=== PATIENT | male | born 1940 | race African-American/Black ===

== ENCOUNTER 2019-09-27 23:41 | Inpatient (IN) | payer OTHER ==
[~2019-09-27] VITALS: Ht 188 cm; Wt 141.6 kg
[2019-09-27 23:43] VITALS: BP 128/50
[2019-09-28] VITALS (52 sets, daily range): BP systolic 58–178; BP diastolic 19–78
[2019-09-28 00:13] LABS: ABSOLUTE NEUTROPHILS 6.7 thou/uL (1.4-8.2); BASOPHILS 0.4 % (0.0-2.0); EOSINOPHILS 0.9 % (0.0-3.0); HEMATOCRIT 38.3 % (42.0-52.0); HEMOGLOBIN 12.3 gm/dL (14.0-18.0); LYMPHOCYTES 16.4 % (24.0-44.0); MCH 28.9 pg (26.0-34.0); MCHC 32.1 g/dL (28.0-37.0); MCV 90.1 fL (80.0-100.0); MONOCYTES 5.2 % (1.0-8.0); PLATELET COUNT 184 thou/uL (150-400); POLYS 77.1 % (36.0-66.0); RBC 4.25 mil/uL (4.50-6.00); RDW 17.3 % (10.5-14.5); WBC 8.7 thou/uL (4.0-11.0)
[2019-09-28 00:17] LABS: ANION GAP 1 mmol/L (7-16); BUN 24 mg/dL (7-18); CHLORIDE 96 mmol/L (98-107); CO2 39 mmol/L (21-32); CREATININE 1.2 mg/dL (0.7-1.3); GLUCOSE 198 mg/dL (74-106); POTASSIUM 4.4 mmol/L (3.5-5.1); SODIUM 136 mmol/L (136-145)
[2019-09-28] MEDS ORDERED: ALLOPURINOL 10100 M1 PO (00:24)
[2019-09-28] MEDS ORDERED: LIPITOR 10 MG10 M1 PO (00:25)
[2019-09-28] MEDS ORDERED: CARVEDILOL12.5 MG PO (00:26)
[2019-09-28 00:27] LABS: DIRECT BILIRUBIN 0.1 mg/dL (<0.1-0.2); SGOT 16 U/L (15-37); SGPT 18 U/L (30-65); TOTAL BILIRUBIN 0.3 mg/dL (0.2-1.0); TROPONIN-I <0.06 ng/mL (<0.06)
[2019-09-28] MEDS ORDERED: CHILDREN'S ZYRT10 M1 PO (00:27)
[2019-09-28] MEDS ORDERED: ELIQUIS5 MG PO (00:33)
[2019-09-28] MEDS ORDERED: CODEINE-GUAIFE120 ML PO (00:33)
[2019-09-28] MEDS ORDERED: DULCOLAX STOOL100 M1 PO (00:33)
[2019-09-28] MEDS ORDERED: EUCERIN CREME57 GM TOP (00:34)
[2019-09-28] MEDS ORDERED: FLOMAX0.4 MG PO (00:35)
[2019-09-28] MEDS ORDERED: GLIMEPIRIDE1 MG PO (00:36)
[2019-09-28] MEDS ORDERED: FUROSEMIDE 40 M40 MG PO (00:36)
[2019-09-28] MEDS ORDERED: JANUVIA100 MG PO (00:36)
[2019-09-28] MEDS ORDERED: LEVO-T75 MCG PO (00:37)
[2019-09-28] MEDS ORDERED: MIDODRINE HCL10 MG PO (00:38)
[2019-09-28] MEDS ORDERED: LOPERAMIDE 2 MG2 MG PO (00:38)
[2019-09-28] MEDS ORDERED: SUPER THERAVIT1 EACH PO (00:39)
[2019-09-28] MEDS ORDERED: ENDOCET 5-3251 EACH PO (00:41)
[2019-09-28 00:42] LABS: APTT 31.5 Seconds (24.5-32.8); INR 1.1; PROTIME 10.9 Seconds (9.3-11.4)
[2019-09-28] MEDS ORDERED: CLEAR EYES NATU15 ML EA. EYE (00:43)
[2019-09-28] MEDS ORDERED: LYRICA150 MG PO (00:46)
[2019-09-28 01:18] LABS: URINE BILIRUBIN 1+ (Negative); URINE BLOOD 3+ (Negative); URINE CLARITY CLOUDY; URINE COLOR YELLOW; URINE GLUCOSE-RANDOM* NEGATIVE (Negative); URINE KETONES NEGATIVE (Negative); URINE PROTEIN (DIPSTICK) 2+ (Negative); URINE SPECIFIC GRAVITY >= 1.030 (1.005-1.035)
[2019-09-28 01:32] LABS: ICTOTEST (BILI CONFIRMATORY) Positive (Negative); URINE LEUKOCYTES-REFLEX 2+ (Negative); URINE NITRITE-REFLEX POSITIVE (Negative)
[2019-09-28 01:37] LABS: CRYSTALS None Seen /LPF (None Seen); HYALINE CASTS 4-10 Moderate /LPF (None Seen); MUCUS 0-3 Light strn/LPF (None Seen); SQUAMOUS None Seen /LPF (0-3); URINE RBC >20 Many /HPF (0-2); URINE WBC-REFLEX >25 Many /HPF (0-5)
[2019-09-28 01:38] LABS: BACTERIA-REFLEX >30 Many /HPF (None Seen)
[2019-09-28 01:42] LABS: AMP/METHAMP Negative (Negative); BARBITURATES Negative (Negative); BENZODIAZEPINES Negative (Negative); COCAINE Negative (Negative); METHADONE Negative (Negative); OPIATES Negative (Negative); PCP Negative (Negative)
[2019-09-28 05:37] LABS: BE(vivo) 4.2 mmol/L (-2 to +3); pH 7.361 (7.360-7.450); sO2 87.2 % (92.0-98.0)
[2019-09-28 05:41] LABS: PO2 55.6 mmHg (80.0-100.0)
[2019-09-28 09:13] LABS: BE(vivo) 3.4 mmol/L (-2 to +3); HCO3 29.1 mmol/L (22.0-26.0); PCO2 49.1 mmHg (35.0-45.0); PO2 77.6 mmHg (80.0-100.0); pH 7.391 (7.360-7.450); sO2 95.3 % (92.0-98.0)
[2019-09-28 13:25] LABS: HEMATOCRIT 38.1 % (42.0-52.0); HEMOGLOBIN 12.2 gm/dL (14.0-18.0); MCH 28.3 pg (26.0-34.0); MCV 88.7 fL (80.0-100.0); RBC 4.29 mil/uL (4.50-6.00); RDW 17.2 % (10.5-14.5); WBC 13.4 thou/uL (4.0-11.0)
[2019-09-28 13:56] LABS: ALBUMIN 2.6 g/dL (3.4-5.0); CALCIUM 8.6 mg/dL (8.5-10.1); MAGNESIUM 1.8 mg/dL (1.8-2.4); POTASSIUM 3.7 mmol/L (3.5-5.1); TOTAL BILIRUBIN 0.5 mg/dL (0.2-1.0); TOTAL PROTEIN 7.4 g/dL (6.4-8.2)
[2019-09-29] VITALS (51 sets, daily range): BP systolic 63–149; BP diastolic 35–99
[2019-09-29 05:27] LABS: BE(vivo) 3.1 mmol/L (-2 to +3); HCO3 25.8 mmol/L (22.0-26.0); PO2 103.2 mmHg (80.0-100.0); pH 7.511 (7.360-7.450); sO2 98.2 % (92.0-98.0)
[2019-09-29 05:34] LABS: HEMATOCRIT 34.6 % (42.0-52.0); HEMOGLOBIN 11.2 gm/dL (14.0-18.0); MCH 28.8 pg (26.0-34.0); MCHC 32.4 g/dL (28.0-37.0); MCV 88.8 fL (80.0-100.0); RBC 3.9 mil/uL (4.50-6.00); RDW 17.4 % (10.5-14.5); WBC 9.7 thou/uL (4.0-11.0)
[2019-09-29 05:42] LABS: CALCIUM 8.6 mg/dL (8.5-10.1); MAGNESIUM 1.7 mg/dL (1.8-2.4); POTASSIUM 3.3 mmol/L (3.5-5.1)
--- NOTE | 2019-09-29 07:54 | EKG ---
[facility] [place] [address] ELECTROCARDIOGRAM REPORT Name: HOLDEN DE LA PAZ Room #: 240-P ADM IN M.R.#: [id number] Admission: 09/28/19 Attend Phys: Neo Del Valle MD Discharge: Date of : 44 Report #: [id number] THIS REPORT FOR: cc: Bill Platt MD, Shyam MD Lundgren,Julián Sullivan MD [facility] ~ THIS REPORT FOR: //name// [facility] ED Test Date: 2019-09-27 Test Time: 23:58:56 Pat Name: HOLDEN DE LA PAZ Department: Room: 240 Gender: M Transmitter Supervisor: ofelia : 1940 Requested By: Evelin Vogel Order Number: [id number] MD: Julián Mike Measurements Intervals [place] Rate: 81 P: 0 OH: 220 QRS: -74 QRSD: 161 T: 37 QT: 451 QTc: 524 Interpretive Statements Sinus rhythm Ventricular premature complex Prolonged OH interval Left atrial enlargement RBBB and LAFB No previous ECG available for comparison Electronically Signed On 09-29-2019 7:54:05 CDT by Julián Mike [email or web address] <ELECTRONICALLY SIGNED> By: Julián Mike MD, [facility] 09/29/19 0754 [id number] Julián Mike MD, [facility] /EPI
[2019-09-30] VITALS (14 sets, daily range): BP systolic 75–163; BP diastolic 40–124
[2019-09-30 05:13] LABS: HEMATOCRIT 35.5 % (42.0-52.0); HEMOGLOBIN 11.4 gm/dL (14.0-18.0); MCH 28.4 pg (26.0-34.0); MCHC 32.1 g/dL (28.0-37.0); MCV 88.5 fL (80.0-100.0); RBC 4.01 mil/uL (4.50-6.00); RDW 17.6 % (10.5-14.5); WBC 6.9 thou/uL (4.0-11.0)
[2019-09-30 06:34] LABS: CALCIUM 8.5 mg/dL (8.5-10.1); CREATININE 0.8 mg/dL (0.7-1.3); MAGNESIUM 2.1 mg/dL (1.8-2.4); POTASSIUM 3.7 mmol/L (3.5-5.1)
--- NOTE | 2019-09-30 08:50 | 2DMMODE ---
[facility] [address] [place] [address] 2 D/M-MODE ECHOCARDIOGRAM Name: HOLDEN DE LA PAZ Room #: 246-P ADM IN M.R.#: [id number] Admission: 09/28/19 Attend Phys: Neo Del Valle MD Discharge: Date of : 42 Report #: [id number] THIS REPORT FOR: cc: Bill Platt MD, Shyam MD Lundgren,Julián Sullivan MD [facility] ~ APPROVED REPORT Study performed: 09/30/2019 07:52:09 EXAM: Comprehensive 2D, Doppler, and color-flow Echocardiogram Patient Location: ICU Room #: 246 Status: routine BSA: 2.62 HR: 60 bpm BP: 163/124 mmHg Rhythm: Pacemaker Other Information Study Quality: Fair/not all measurements obtainable Technically limited study due to morbid obesity, on vent. Indications Rule out vegetations. Sepsis. Mental status changes. Hx: Pacemaker, heart failure, PVD, HTN, DM. 2D Dimensions IVSd: 15.05 (7-11mm) LVOT Diam: 22.79 (18-24mm) LVDd: 58.13 mm PWd: 15.00 (7-11mm) LVDs: 45.22 (25-40mm) Aortic Root: 39.13 mm Aortic Valve AoV Peak Saud.: 1.41 m/s AO Peak Gr.: 7.95 mmHg LVOT Max P.34 mmHg LVOT Max V: 0.77 m/s APARNA Vmax: 2.21 cm2 Mitral Valve E/A Ratio: 1.1 MV Decel. Time: 165.52 ms [facility] [address] [place] [address] 2 D/M-MODE ECHOCARDIOGRAM Name: HOLDEN DE LA PAZ Room #: 246-P [facility].#: [id number] Admission: 09/28/19 Attend Phys: Neo Del Valle, Discharge: Date of : 42 Report #: [id number] MV E Max Saud.: 0.93 m/s MV A Saud.: 0.81 m/s MV PHT: 48.00 ms IVRT: 69.20 ms Pulmonary Valve PV Peak Saud.: 0.71 m/s PV Peak Gr.: 2.04 mmHg Tricuspid Valve TR Peak Saud.: 3.95 m/s RAP Estimate: 15.00 mmHg TR Peak Gr.: 62.35 mmHg PA Pressure: 77.00 mmHg Left Ventricle Left ventricle is at the upper limits of normal. Moderate concentric left ventricular hypertrophy. Left ventricular systolic function is at the lower limits of normal. LVEF is 45-50%. Discordant distal septal motion probably from right ventricular pacing Moderate diastolic dysfunction Right Ventricle Right ventricle is not well visualized but appears grossly normal in function. Pacemaker lead is present in the right ventricle. Atria Left atrium is dilated. Right atrium size is not well visualized. Aortic Valve The aortic valve is moderately calcified. No aortic regurgitation is present. There is no aortic valvular stenosis. Mitral Valve Mild mitral annular calcification. Moderate mitral regurgitation; difficult to characterize Tricuspid Valve Tricuspid valve is not well visualized. Moderate tricuspid regurgitation. Estimated PAP is 70mmHg. Pulmonic Valve Pulmonic valve is not well visualized. Great Vessels Aortic root is mildly dilated (3.9cm). Ascending aorta is not well visualized. IVC is dilated and collapses <50% with [facility] [address] [place] [address] 2 D/M-MODE ECHOCARDIOGRAM Name: HOLDEN DE LA PAZ Room #: 246-P [facility].#: [id number] Admission: 09/28/19 Attend Phys: Neo Del Valle, Discharge: Date of : 44 Report #: [id number] inspiration. Pericardium Small posteriorly located pericardial effusion. <Conclusion> Technically difficult and limited study Left ventricular systolic function is at the lower limits of normal. LVEF is 45-50%. Discordant distal septal motion probably from right ventricular pacing Moderate diastolic dysfunction Left atrium is dilated. The aortic valve is moderately calcified. No aortic regurgitation or stenosis. Mild mitral annular calcification. Moderate mitral regurgitation; difficult to characterize Moderate tricuspid regurgitation. Estimated pulmonary artery pressure of 70mmHg. Small posteriorly located pericardial effusion. <ELECTRONICALLY SIGNED> By: Julián Mike MD, [facility] 09/30/1948 0850 Julián Mike MD, [facility] /INF
[2019-09-30 14:33] LABS: BE(vivo) 0 mmol/L (-2 to +3); HCO3 25.1 mmol/L (22.0-26.0); PCO2 42.5 mmHg (35.0-45.0); PO2 159.8 mmHg (80.0-100.0); pH 7.389 (7.360-7.450)
[2019-10-01] VITALS (24 sets, daily range): BP systolic 120–162; BP diastolic 22–63
[2019-10-01 05:45] LABS: HEMATOCRIT 33.8 % (42.0-52.0); HEMOGLOBIN 10.8 gm/dL (14.0-18.0); MCH 28.5 pg (26.0-34.0); MCHC 31.8 g/dL (28.0-37.0); MCV 89.6 fL (80.0-100.0); RBC 3.77 mil/uL (4.50-6.00); RDW 17.8 % (10.5-14.5); WBC 5.6 thou/uL (4.0-11.0)
[2019-10-01 06:05] LABS: CALCIUM 8.5 mg/dL (8.5-10.1); CREATININE 0.8 mg/dL (0.7-1.3); MAGNESIUM 2.1 mg/dL (1.8-2.4); POTASSIUM 3.6 mmol/L (3.5-5.1)
[2019-10-02] VITALS (26 sets, daily range): BP systolic 138–181; BP diastolic 43–121
[2019-10-02 04:52] LABS: HEMATOCRIT 34.1 % (42.0-52.0); HEMOGLOBIN 10.8 gm/dL (14.0-18.0); MCH 28.5 pg (26.0-34.0); MCHC 31.7 g/dL (28.0-37.0); MCV 89.8 fL (80.0-100.0); RBC 3.79 mil/uL (4.50-6.00); RDW 17.3 % (10.5-14.5); WBC 5.1 thou/uL (4.0-11.0)
[2019-10-02 05:00] LABS: CALCIUM 8.7 mg/dL (8.5-10.1); CREATININE 0.9 mg/dL (0.7-1.3); POTASSIUM 3.3 mmol/L (3.5-5.1)
[2019-10-03] VITALS (9 sets, daily range): BP systolic 144–192; BP diastolic 31–74
[2019-10-03 05:16] LABS: CALCIUM 8.8 mg/dL (8.5-10.1); CREATININE 0.9 mg/dL (0.7-1.3); POTASSIUM 3.4 mmol/L (3.5-5.1)
[2019-10-03 05:17] LABS: HEMATOCRIT 35.7 % (42.0-52.0); HEMOGLOBIN 11.3 gm/dL (14.0-18.0); MCH 28.2 pg (26.0-34.0); MCHC 31.7 g/dL (28.0-37.0); MCV 88.8 fL (80.0-100.0); RBC 4.02 mil/uL (4.50-6.00); RDW 17.1 % (10.5-14.5); WBC 7.1 thou/uL (4.0-11.0)
[2019-10-04 06:47] LABS: HEMATOCRIT 34.3 % (42.0-52.0); MCH 28.4 pg (26.0-34.0); MCHC 32.1 g/dL (28.0-37.0); MCV 88.5 fL (80.0-100.0); RBC 3.87 mil/uL (4.50-6.00); RDW 17.4 % (10.5-14.5); WBC 9.3 thou/uL (4.0-11.0)
[2019-10-04 07:09] LABS: CALCIUM 8.8 mg/dL (8.5-10.1); CREATININE 0.9 mg/dL (0.7-1.3); POTASSIUM 3.1 mmol/L (3.5-5.1)
[2019-10-04 07:22] VITALS: BP 158/68
[2019-10-04 10:24] LABS: URINE BILIRUBIN NEGATIVE (Negative); URINE BLOOD 1+ (Negative); URINE CLARITY CLEAR; URINE COLOR YELLOW; URINE GLUCOSE-RANDOM* NEGATIVE (Negative); URINE KETONES NEGATIVE (Negative); URINE LEUKOCYTES-REFLEX NEGATIVE (Negative); URINE NITRITE-REFLEX NEGATIVE (Negative); URINE PROTEIN (DIPSTICK) NEGATIVE (Negative); URINE SPECIFIC GRAVITY 1.015 (1.005-1.035); URINE UROBILINOGEN 0.2 E.U./dl (0.2-1.0)
[2019-10-04 10:38] LABS: CASTS None Seen /LPF (None Seen); MUCUS 0-3 Light strn/LPF (None Seen); SQUAMOUS 0-3 Few /LPF (0-3)
[2019-10-04 10:39] LABS: BACTERIA-REFLEX None Seen /HPF (None Seen); CRYSTALS None Seen /LPF (None Seen); URINE RBC 0-2 Rare /HPF (0-2); URINE WBC-REFLEX 0-5 Rare /HPF (0-5)
[2019-10-04] MEDS ORDERED: CEFDINIR300 MG PO (14:06)
[2019-10-04] MEDS ORDERED: IPRAT-ALBUT 0.5-3 ML INH (14:06)
[2019-10-04] MEDS ORDERED: PREDNISONE 10 M10 M1 PO (14:08)
[2019-10-04 15:35] VITALS: BP 152/52
[2019-10-05 01:00] VITALS: BP 187/92
[2019-10-05 04:00] VITALS: BP 167/79
[2019-10-05 08:19] VITALS: BP 174/82
== END 2019-10-05 15:13 | DRG 871 ==
LOC: ER 23:41 → EROBS 09-28 03:17 → ICU 09-28 03:17 → 4W 10-03 06:18
PROVIDERS: Emergency Medicine; Hospitalist; Internal Medicine Pulmonary Disease; Nurse Practitioner Family; Pediatrics; ADMIT Internal Medicine; ATTEND Internal Medicine
PROC: 5A1945Z Respiratory Ventilation, 24-96 Consecutive Hours (ICD-10-PCS; principal; 2019-09-28)
PROC: 02HV33Z Insertion of Infusion Device into Superior Vena Cava, Percutaneous Approach (ICD-10-PCS; principal; 2019-09-28)
PROC: 0BH18EZ Insertion of Endotracheal Airway into Trachea, Via Natural or Artificial Opening Endoscopic (ICD-10-PCS; principal; 2019-09-28)
PROC: 4B02XSZ Measurement of Cardiac Pacemaker, External Approach (ICD-10-PCS; 2019-10-02)
DX: A41.59 Other Gram-negative sepsis (principal); R65.21 Severe sepsis with septic shock; J96.02 Acute respiratory failure with hypercapnia; J96.01 Acute respiratory failure with hypoxia; J18.9 Pneumonia, unspecified organism; I50.33 Acute on chronic diastolic (congestive) heart failure; N39.0 Urinary tract infection, site not specified; E87.2 Acidosis; Z68.41 Body mass index [BMI] 40.0-44.9, adult; J98.11 Atelectasis; I42.9 Cardiomyopathy, unspecified; M10.9 Gout, unspecified; E78.5 Hyperlipidemia, unspecified; E03.9 Hypothyroidism, unspecified; E66.01 Morbid (severe) obesity due to excess calories; E11.51 Type 2 diabetes mellitus with diabetic peripheral angiopathy without gangrene; K21.9 Gastro-esophageal reflux disease without esophagitis; F03.90 Unspecified dementia, unspecified severity, without behavioral disturbance, psychotic disturbance, mood disturbance, and anxiety; Y95 Nosocomial condition; I11.0 Hypertensive heart disease with heart failure; N40.1 Benign prostatic hyperplasia with lower urinary tract symptoms; R33.8 Other retention of urine; E87.6 Hypokalemia; E83.42 Hypomagnesemia; B96.89 Other specified bacterial agents as the cause of diseases classified elsewhere; I48.91 Unspecified atrial fibrillation; Z20.828 Contact with and (suspected) exposure to other viral communicable diseases; I08.1 Rheumatic disorders of both mitral and tricuspid valves; E11.40 Type 2 diabetes mellitus with diabetic neuropathy, unspecified; B96.1 Klebsiella pneumoniae [K. pneumoniae] as the cause of diseases classified elsewhere; Z95.0 Presence of cardiac pacemaker; Z79.01 Long term (current) use of anticoagulants; Z79.899 Other long term (current) drug therapy; Z79.84 Long term (current) use of oral hypoglycemic drugs; Z74.01 Bed confinement status
CPT/HCPCS: 10047; 10078

== ENCOUNTER 2019-10-15 11:42 | Inpatient (IN) | payer OTHER ==
[~2019-10-15] VITALS: Ht 182.9 cm; Wt 147.9 kg
--- NOTE | ~2019-10-15 | EMS ---
[address] [address] EMS Patient Care Report Name: HOLDEN DE LA PAZ Room #: REG [facility] Valdez#: [id number] Admission: 10/15/19 Attend Phys: Discharge: Date of : 42 Report #: [id number] THIS REPORT FOR: //name// Report Transmitted: 10/15/2019 13:37 EMS Care Summary [place], [place]/[facility] Incident [id number] @ 10/15/2019 11:00 Incident Location [address] [place] [address] Patient HOLDEN DE LA PAZ JR Male, 79 Years 1940 Patient Address [address] [place], [place] [id number] Patient History Dementia,Hypertension (HTN),Hyperlipidemia,Gastro-Esophageal Reflux Disease (GERD),Morbid Obesity,Cardiac Condition - Other,Pneumonia,Hypothyroidism,Type 2 Diabetes,None Reported, Patient Allergies No known allergies, Patient Medications Furosemide, Atorvastatin, Other, Allopurinol, Docusate Sodium, Carvedilol, Levothyroxine, Tamsulosin, Loperamide, Glimepiride, Albuterol, Prednisone, Januvia, Percocet, Chief Complaint AMS Disposition Transported No Lights/[place] Reason Unconscious/Fainting Transported To [address] [address] EMS Patient Care Report Name: HOLDEN DE LA PAZ Room #: REG [facility] Valdez#: [id number] Admission: 10/15/19 Attend Phys: Discharge: Date of : 42 Report #: [id number] Narrative PT FOUND LYING IN BED. [facility] T15 ALSO RESPONDED. STAFF STATES THAT PT IS UNRESPONSIVE TO THEM. STAFF IS DIFFICULT GETTING INFORMATION OUT OF. ISOLATION PRECAUTIONS NOTICES WERE POSTED ON PT ROOM DOOR. WHEN STAFF ASKED ABOUT THIS, THEY SAID THAT THERE WEREN'T ANY. STAFF DID NOT GIVE PT VITALS AND SAID THAT THEY WERE OK. PT NOTED TO BE DIABETIC WHILE READING CHART. STAFF SPECIFICALLY ASKED IF THEY TOOK HIS BOOD SUGAR. THEY REPLIED THAT IT WAS 128. STAFF DID NOT GIVE ANY FURTHER INFORMATION BESIDES SAYING THAT THIS DEMENTIA PATIENT WAS NORMALLY ALERT AND ORIENTED. [facility] APPLIED TO PT FOR TRANSPORT. TRANSPORTED WITHOUT INCIDENT. NO IV SITE NOTED ON EXAM. Initial Vitals @11:19P: 72,R: 18,BP: 151/76,Pain: 0/10,GCS: 12,Glucose: 107,SpO2: 89,Revised Trauma: 11,WA Suspected: false Assessments @11:15MENTAL:Unresponsive,SKIN:No Abnormalities,HEENT:Head/Face: No Abnormalities,Eyes: No Abnormalities,Neck/Airway: No Abnormalities,LUNG SOUNDS:ABDOMEN:PELVIS//GI:EXTREMITIES:PULSE:NEURO:No Abnormalities, Impression Altered Mental Status Procedures @11:15ALS AssessmentResponse: UnchangedSucceeded@11:203-Lead ECGResponse: UnchangedSucceeded Timeline 10:58,Call Received 10:58,Dispatch Notified 11:00,Dispatched 11:00,En Route 11:08,On Scene 11:15,At Patient 11:15,ALS Assessment,Response: UnchangedSucceeded, 11:19,BP: 151/76 M,PULSE: 72,RR: 18 R,SPO2: 89 Ox,ETCO2: ,B,PAIN: 0,GCS: 12, 11:20,3-Lead ECG,Response: UnchangedSucceeded, 11:22,Depart Scene 11:32,At Destination 11:52,Call Closed Disclaimer v1.1 Copyright 2020 [employer] This EMS Care Summary contains data elements from the applicable legal record (which may be displayed differently). It is designed to provide pertinent [address] [address] EMS Patient Care Report Name: ANA CRISTINAHOLDEN Jaime Room #: REG Courtney#: [id number] Admission: 10/15/19 Attend Phys: Discharge: Date of : 42 Report #: [id number] information for the following purposes: continuity of care, clinical quality, and state data reporting. The complete legal record is available to ED staff and administrators of the receiving hospital in [employer] Patient Tracker. All data is provided "as is."
[~2019-10-15 11:42] MED LIST: ALLOPURINOL 10100 M1 PO; CARVEDILOL12.5 MG PO; CEFDINIR300 MG PO; CHILDREN'S ZYRT10 M1 PO; CLEAR EYES NATU15 ML EA. EYE; CODEINE-GUAIFE120 ML PO; DULCOLAX STOOL100 M1 PO; ELIQUIS5 MG PO; ENDOCET 5-3251 EACH PO; EUCERIN CREME57 GM TOP; FLOMAX0.4 MG PO; FUROSEMIDE 40 M40 MG PO; GLIMEPIRIDE1 MG PO; IPRAT-ALBUT 0.5-3 ML INH; JANUVIA100 MG PO; LEVO-T75 MCG PO; LIPITOR 10 MG10 M1 PO; LOPERAMIDE 2 MG2 MG PO; LYRICA150 MG PO; MIDODRINE HCL10 MG PO; PREDNISONE 10 M10 M1 PO; SUPER THERAVIT1 EACH PO
[2019-10-15 11:45] VITALS: BP 132/58
[2019-10-15 13:12] LABS: ABSOLUTE NEUTROPHILS 5.4 thou/uL (1.4-8.2); BASOPHILS 0.8 % (0.0-2.0); EOSINOPHILS 1.1 % (0.0-3.0); HEMATOCRIT 37.4 % (42.0-52.0); LYMPHOCYTES 17.5 % (24.0-44.0); MCH 28.6 pg (26.0-34.0); MCV 89.3 fL (80.0-100.0); MONOCYTES 7.9 % (1.0-8.0); PLATELET COUNT 284 thou/uL (150-400); POLYS 72.7 % (36.0-66.0); RBC 4.18 mil/uL (4.50-6.00); RDW 16.7 % (10.5-14.5); WBC 7.4 thou/uL (4.0-11.0)
[2019-10-15 13:44] LABS: BE(vivo) 7.2 mmol/L (-2 to +3); HCO3 39.8 mmol/L (22.0-26.0); PCO2 114.2 mmHg (35.0-45.0); PO2 104.2 mmHg (80.0-100.0); sO2 95.6 % (92.0-98.0)
[2019-10-15 15:02] LABS: ALBUMIN 2.7 g/dL (3.4-5.0); ANION GAP 4 mmol/L (7-16); BUN 17 mg/dL (7-18); CALCIUM 8.2 mg/dL (8.5-10.1); CHLORIDE 105 mmol/L (98-107); CO2 34 mmol/L (21-32); CREATININE 1.3 mg/dL (0.7-1.3); DIRECT BILIRUBIN < 0.1 mg/dL (<0.1-0.2); GLUCOSE 85 mg/dL (74-106); POTASSIUM 4.2 mmol/L (3.5-5.1); SGOT 17 U/L (15-37); SGPT 16 U/L (30-65); SODIUM 143 mmol/L (136-145); TOTAL BILIRUBIN 0.3 mg/dL (0.2-1.0); TOTAL PROTEIN 7.2 g/dL (6.4-8.2)
[2019-10-15 15:11] LABS: BE(vivo) 5.6 mmol/L (-2 to +3); HCO3 36.2 mmol/L (22.0-26.0); PCO2 89.7 mmHg (35.0-45.0); PO2 73.6 mmHg (80.0-100.0); pH 7.224 (7.360-7.450); sO2 90.9 % (92.0-98.0)
[2019-10-15 17:17] LABS: URINE BILIRUBIN NEGATIVE (Negative); URINE BLOOD 2+ (Negative); URINE CLARITY SL CLOUDY; URINE COLOR YELLOW; URINE GLUCOSE-RANDOM* NEGATIVE (Negative); URINE KETONES NEGATIVE (Negative); URINE LEUKOCYTES-REFLEX NEGATIVE (Negative); URINE NITRITE-REFLEX NEGATIVE (Negative); URINE PROTEIN (DIPSTICK) TRACE (Negative); URINE SPECIFIC GRAVITY >= 1.030 (1.005-1.035); URINE UROBILINOGEN 0.2 E.U./dl (0.2-1.0)
[2019-10-15 17:24] LABS: BACTERIA-REFLEX 1-9 Few /HPF (None Seen); CASTS None Seen /LPF (None Seen); CRYSTALS None Seen /LPF (None Seen); SQUAMOUS 0-3 Few /LPF (0-3); URINE RBC 3-10 Few /HPF (0-2); URINE WBC-REFLEX 0-5 Rare /HPF (0-5)
[2019-10-15 17:25] LABS: AMORPHOUS URATES Moderate /LPF (None Seen)
[2019-10-15 21:02] LABS: HCO3 31.8 mmol/L (22.0-26.0); PO2 88.9 mmHg (80.0-100.0); pH 7.413 (7.360-7.450); sO2 96.8 % (92.0-98.0)
[2019-10-15 21:47] VITALS: BP 90/63
--- NOTE | 2019-10-15 21:51 | NUR ---
Talked with NELSON Rose to give report but RN reported they are getting several pt and does not know who the nurse will be. RN will call once assignments have been made
[2019-10-15 21:52] VITALS: BP 155/72
--- NOTE | 2019-10-15 22:13 | NUR ---
Called for 2nd time to give report but nobody answered phone. Let phone ring for over 5 minutes
[2019-10-15 23:15] VITALS: BP 144/85
[2019-10-16 05:30] VITALS: BP 161/74
--- NOTE | 2019-10-16 08:03 | NUR ---
PT ARRIVED FROM ER VIA CART, PLACED IN ROOM 363. ADMISSION ASSESSMENTS COMPLETED. PT DENIED ANY PAIN OR SOA. HE WAS ORIENTED TO HIS GLADIS AND "SEPTEMBER" ONLY. WHEN TOLD HE WAS IN THE HOSPITAL HE STATED "HOW DID I GET HERE. I DON'T REMEMBER." THIS AM PT WAS APPROACHED BY LAB STAFF FOR A BLOOD DRAW AND PT REFUSED. HE REPORTEDLY WAS VERBALLY HOSTILE TO CALLING HER "STUPID" AND RAISING HIS FIST TO HER. DID APPROACH PT AFTER THAT TO GIVE SOME MEDICATIONS AND PT REFUSED. HE REFUSED TO ALLOW THE IV LINE TO REMAIN ATTACHED. REFUSED TO KEEP THE TELEMETRY IN PLACE. "I'M HEADING OUT TODAY." ATTEMPTED TO REORIENT PT TO HIS LOCATION AND SITUATION. PT WAS ARGUMENTATIVE SAYING "WHO ARE YOU. WHO HIRED YOU?" PT WOULD NOT ACCEPT THE INFORMATION. "YOU DON'T TELL ME WHAT TO DO, I TELL YOU WHAT TO DO." PT THEN RAISED HIS FIST TOWARDS THIS RN. CONVERSTATION CEASED WITH. BED ALARM IN PLACE. REPORT GIVEN TO DAY RN.
--- NOTE | 2019-10-16 15:00 | NUR ---
INITIAL ASSESSMENT: Received consult. CYNTHIA reviewed chart and spoke with nursing and attending physician. Pt was admitted from [facility] due to AMS. Pt was placed in Enhanced Isolation to r/o COVID-19. Test is negative. Awaiting input from physicians if pt will have a second test. Pt is afebrile, on 2L O2, IV steroids. Psych consulted to evaluate pt. CYNTHIA spoke with pt's , Bibi, via phone. Introduced role of SW. Pt lives in [facility] [place]. Pt is normally in a w/c or bed bound. Pt's states pt does enjoy working with therapy to try to stand and get out of bed. Pt was recently at [facility] and discharged back to [facility] on 10/04. Pt's confirms plan is for pt to return to [place] when medically stable. Pt's states she has DPOA ppwk and will fax to the 3W nurses station to place on pt's chart. Contact info for pt's dtr and names of son and dtr-in-law provided. CYNTHIA updated info. CYNTHIA faxed clinical info, COVID test results, vital signs to [facility] for review. Updated [facility] post-acute liaison. CYNTHIA is following to assist as needed with discharge planning.
[2019-10-16 15:50] VITALS: BP 165/80
--- NOTE | 2019-10-16 19:41 | NUR ---
PT A&O TO SELF, SOMETIMES TO PLACE AND SITUATION. PT DID REFUSE MORNING MEDS AND ALL CARE. THOUGH DID ALLOW ME LATER IN THE DAY TO OBTAIN SECOND TEST. PT NOW ALLOWING ALL CARES. CALL LIGHT W/I REACH, BED ALARM ON.
[2019-10-16 20:20] VITALS: BP 173/72
[2019-10-17 04:40] VITALS: BP 172/75
--- NOTE | 2019-10-17 07:12 | NUR ---
Nutrition: Assessing due to BMI >40 at 41.2 kg/m2 per CBW 303#. Pt admit w/ AMS, found unresponsive. Noted per 10/15 psych note that pt has been having hallucinations/delusions - is far from his baseline. 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 Given current condition, weight loss education not deemed appropriate. All meals prepared for pt at LTC, pt not responsible for own meals. First COVID test negative, currently awaiting results from second test. Pt has only been in hospital ~1 day so far, no meals yet recorded, but pt here earlier in September and was eating 70-80% of most meals. Anticipate low nutrition risk.
[2019-10-17 08:02] VITALS: BP 140/56
[2019-10-17 11:16] VITALS: BP 140/80
--- NOTE | 2019-10-17 14:34 | NUR ---
CYNTHIA reviewed chart and spoke with nursing and attending physician. Pt has had two negative COVID tests. Psych consulted. Pt has been cooperating with staff. CYNTHIA spoke with pt's via phone to provide update. Pt's stated that she has been trying to get in touch with pt's nurse all morning for an update. SW notified pt's nurse to call pt's . CYNTHIA faxed clinical updates/COVID test results/vital signs to [facility] for review. Discussed with [facility] post-acute liaison who confirms they are able to accept pt back over the weekend if he is ready. Finalized discharge orders/summary will need to be faxed when available. Weekend admissions liaison, Flor, will need to be contacted to coordinate discharge. CYNTHIA is following and available to assist as needed with discharge planning. [facility]-- Liaison ([place]): or [phone]
[2019-10-17 16:15] VITALS: BP 136/86
--- NOTE | 2019-10-17 18:16 | NUR ---
pt transfered to unit this afternoon. assessment as charted - pt confused, pleasant - has not been attempting to get opout of bed. tony diet and fluids. meds as per may - no co's of pain or nausea. pt has been resting in bed since arrival to the t. oriented to room and bedspace. no co's at the present time.
[2019-10-17 19:30] VITALS: BP 125/61
[2019-10-18] VITALS: BP 133/63
[2019-10-18 03:20] VITALS: BP 130/68
--- NOTE | 2019-10-18 05:02 | NUR ---
Assumed pt care at 1900. Pt is alert and oriented. No sign of distress noted in pt. Denies any pain. Pt is 3L NC. Fall precaution in place. Assessment completed and documented. Repositioning done. Scheduled meds administered to pt. Tolerated PO intake. Pt is stable through the night. No further needs at this time.
[2019-10-18 07:35] VITALS: BP 123/96
[2019-10-18] MEDS ORDERED: PEPCID20 MG PO (11:54)
[2019-10-18] MEDS ORDERED: SEROQUEL 50 MG50 MG PO (11:54)
[2019-10-18] MEDS ORDERED: SEROQUEL 25 MG25 M1 PO (11:54)
[2019-10-18 12:15] VITALS: BP 130/80
--- NOTE | 2019-10-18 14:37 | NUR ---
ASSESSMENT CHARTED. PT ALERT TO SELF WITH FORGETFULNESS. VSS. SEEN BY DR. CANALES AND DR. JASON. ORDERS GIVEN TO DISCHARGE PT TO SNF. REPORT CALLED IN TO THE NURSE. NO RESPIRATORY DISTRESS NOTED. PT LEFT IN A STRETCHER VAN.
== END 2019-10-18 15:19 | DRG 189 ==
LOC: ER 11:42 → EROBS 16:58 → 3W 16:58 → 2N 10-17 16:15
PROVIDERS: Emergency Medicine; ADMIT Internal Medicine; ATTEND Internal Medicine
PROC: 5A09357 Assistance with Respiratory Ventilation, Less than 24 Consecutive Hours, Continuous Positive Airway Pressure (ICD-10-PCS; principal; 2019-10-15)
DX: J96.01 Acute respiratory failure with hypoxia (principal); G92 Toxic encephalopathy; E44.0 Moderate protein-calorie malnutrition; Z68.41 Body mass index [BMI] 40.0-44.9, adult; I42.9 Cardiomyopathy, unspecified; E66.2 Morbid (severe) obesity with alveolar hypoventilation; J44.1 Chronic obstructive pulmonary disease with (acute) exacerbation; I50.42 Chronic combined systolic (congestive) and diastolic (congestive) heart failure; J96.02 Acute respiratory failure with hypercapnia; N40.0 Benign prostatic hyperplasia without lower urinary tract symptoms; M10.9 Gout, unspecified; E78.5 Hyperlipidemia, unspecified; E03.9 Hypothyroidism, unspecified; K21.9 Gastro-esophageal reflux disease without esophagitis; I11.0 Hypertensive heart disease with heart failure; E11.51 Type 2 diabetes mellitus with diabetic peripheral angiopathy without gangrene; G89.4 Chronic pain syndrome; F03.90 Unspecified dementia, unspecified severity, without behavioral disturbance, psychotic disturbance, mood disturbance, and anxiety; Z20.828 Contact with and (suspected) exposure to other viral communicable diseases; Z95.0 Presence of cardiac pacemaker; Z79.84 Long term (current) use of oral hypoglycemic drugs; Z79.01 Long term (current) use of anticoagulants; Z79.899 Other long term (current) drug therapy
CPT/HCPCS: 10081; 10879

== ENCOUNTER 2019-12-20 06:14 | Emergency (ER) | payer OTHER ==
[~2019-12-20] VITALS: Ht 177.8 cm; Wt 143.7 kg
[~2019-12-20 06:14] MED LIST changes: +PEPCID20 MG PO; +SEROQUEL 25 MG25 M1 PO; +SEROQUEL 50 MG50 MG PO
[2019-12-20 07:03] LABS: HEMATOCRIT 31.4 % (42.0-52.0); HEMOGLOBIN 9.8 gm/dL (14.0-18.0); MCH 27.1 pg (26.0-34.0); MCHC 31.2 g/dL (28.0-37.0); RBC 3.61 mil/uL (4.50-6.00); RDW 17.8 % (10.5-14.5); WBC 8.7 thou/uL (4.0-11.0)
[2019-12-20 07:15] LABS: ANION GAP 2 mmol/L (7-16); BUN 19 mg/dL (7-18); CALCIUM 8.6 mg/dL (8.5-10.1); CHLORIDE 106 mmol/L (98-107); CO2 35 mmol/L (21-32); CREATININE 1.1 mg/dL (0.7-1.3); GLUCOSE 140 mg/dL (74-106); POTASSIUM 4.4 mmol/L (3.5-5.1); SODIUM 143 mmol/L (136-145)
[2019-12-20 07:23] LABS: TROPONIN-I <0.06 ng/mL (<0.06)
[2019-12-20 07:39] LABS: URINE BILIRUBIN NEGATIVE (Negative); URINE BLOOD 3+ (Negative); URINE CLARITY CLEAR; URINE COLOR YELLOW; URINE GLUCOSE-RANDOM* NEGATIVE (Negative); URINE KETONES NEGATIVE (Negative); URINE LEUKOCYTES-REFLEX TRACE (Negative); URINE NITRITE-REFLEX NEGATIVE (Negative); URINE PROTEIN (DIPSTICK) NEGATIVE (Negative); URINE SPECIFIC GRAVITY 1.025 (1.005-1.035); URINE UROBILINOGEN 0.2 E.U./dl (0.2-1.0)
[2019-12-20 08:32] LABS: CASTS None Seen /LPF (None Seen); CRYSTALS None Seen /LPF (None Seen); SQUAMOUS 0-3 Few /LPF (0-3)
[2019-12-20 08:33] LABS: URINE WBC-REFLEX 6-15 Few /HPF (0-5)
--- NOTE | 2019-12-20 09:31 | EKG ---
[facility] [place] [address] ELECTROCARDIOGRAM REPORT Name: HOLDEN BRADLEY Room #: REG [facility]#: [id number] Admission: 12/20/19 Attend Phys: Discharge: Date of : 42 Report #: [id number] THIS REPORT FOR: cc: Bill Platt MD, Shyam MD Santiago,Tal BOO [facility] ~ THIS REPORT FOR: //name// [facility] ED Test Date: 2019-12-20 Test Time: 06:48:27 Pat Name: HOLDEN BRADLEY Department: Room: Gender: Hearing And Speech Assistant: dori kidd rn : 1940 Requested By: Adalberto Bradley Order Number: [id number] MD: Tal Gabriel Measurements Intervals [place] Rate: 82 P: 10 ME: 219 QRS: -84 QRSD: 154 T: 67 QT: 414 QTc: 484 Interpretive Statements Sinus rhythm Borderline prolonged ME interval RBBB and LAFB Compared to ECG 09/27/2019 23:58:56 Ventricular premature complex(es) no longer present Atrial abnormality no longer present Electronically Signed On 12-20-2019 9:31:35 CDT by Tal Gabriel [email or web address] <ELECTRONICALLY SIGNED> By: Tal Gabriel MD, FACC 12/20/19 0931 0648 Tal Gabriel MD, [facility] /EPI
[2019-12-20 10:28] VITALS: BP 154/48
== END 2019-12-20 10:28 ==
LOC: ER 06:14
PROVIDERS: Emergency Medicine
DX: R41.82 Altered mental status, unspecified (principal); F03.90 Unspecified dementia, unspecified severity, without behavioral disturbance, psychotic disturbance, mood disturbance, and anxiety; E78.5 Hyperlipidemia, unspecified; E03.9 Hypothyroidism, unspecified; E66.01 Morbid (severe) obesity due to excess calories; I73.9 Peripheral vascular disease, unspecified; K21.9 Gastro-esophageal reflux disease without esophagitis; I11.0 Hypertensive heart disease with heart failure; I50.9 Heart failure, unspecified; E11.40 Type 2 diabetes mellitus with diabetic neuropathy, unspecified; E11.51 Type 2 diabetes mellitus with diabetic peripheral angiopathy without gangrene; Z68.42 Body mass index [BMI] 45.0-49.9, adult; Z95.0 Presence of cardiac pacemaker; Z79.899 Other long term (current) drug therapy; Z20.828 Contact with and (suspected) exposure to other viral communicable diseases

== ENCOUNTER → 2020-01-14 | Outpatient (CLI) | payer OTHER | LOC: SJCVCIMAG 12:16 | PROVIDERS: ATTEND Nuclear Medicine Nuclear Cardiology | DX: M79.89 Other specified soft tissue disorders (principal); M79.601 Pain in right arm; E66.9 Obesity, unspecified; E78.00 Pure hypercholesterolemia, unspecified; I11.0 Hypertensive heart disease with heart failure; I50.9 Heart failure, unspecified; Z95.0 Presence of cardiac pacemaker; Z79.899 Other long term (current) drug therapy; Z87.891 Personal history of nicotine dependence ==

== ENCOUNTER 2020-01-16 11:34 | Observation (INO) | payer OTHER ==
[~2020-01-16] VITALS: Ht 182.9 cm; Wt 143.3 kg
--- NOTE | ~2020-01-16 | D ---
[facility] [place] [address] DISCHARGE SUMMARY Name: HOLDEN DE LA PAZ Room #: 211-P [facility]#: [id number] Admission: 01/16/20 Attend Phys: Darci Gray MD Discharge: Date of : 44 Report #: [id number] THIS REPORT FOR: cc: Bill Platt MD, Shyam MD Lammoglia, Francisco J. MD ~ THIS REPORT FOR: //name// CC: Darci Platt DATE OF SERVICE: 01/17/2020 ADMITTING DIAGNOSIS: Hypoxemia. DISCHARGE DIAGNOSES: 1. Congestive heart failure, decompensated. 2. Right subclavian thrombosis. 3. Hypertension. 4. Sleep apnea syndrome with Pickwickian habitus. DISCHARGE MEDICATIONS: 1. Noted in the discharge form. 2. Discontinue the Eliquis (no evidence of right arm thrombosis and no atrial fibrillation identified). FOLLOWUP: Dr. Greenfield within 7 days of discharge. BRIEF CLINICAL HISTORY AND HOSPITAL COURSE: The patient underwent a right subclavian dilatation and revascularization thrombectomy. The patient was started on dual antiplatelet therapy and became quite somnolent and hypoxemic. Upon questioning at that time in the laborer wrecking and salvaging recovery region, the patient was hypoxemic and poorly arousable. He does have a history of congestive heart failure and was having difficulty with breathing when laid down. He was subsequently admitted, diuresed and improved significantly. He states that the Eliquis was initiated secondary to right arm thrombus, which is documented not to be present on his last admission. Monitor evidence of atrial fibrillation, although the patient does have a permanent pacing implantation. He is awake, arousable, communicative and wants to return to the institution. He is being [facility] [address] [place] [address] DISCHARGE SUMMARY Name: HOLDEN DE LA PAZ Room #: 211-P [facility]#: [id number] Admission: 01/16/20 Attend Phys: Darci Gray MD Discharge: Date of : 44 Report #: [id number] discharged in improved and stable condition, to follow up with previously stated discharge instructions and medications. By: [id number] Slava Greenfield MD /nt
[2020-01-16 12:28] VITALS: BP 123/44
[2020-01-16 12:38] LABS: HEMATOCRIT 33.2 % (42.0-52.0); HEMOGLOBIN 10.2 gm/dL (14.0-18.0); MCH 25.6 pg (26.0-34.0); MCHC 30.7 g/dL (28.0-37.0); MCV 83.5 fL (80.0-100.0); RBC 3.97 mil/uL (4.50-6.00); RDW 18.7 % (10.5-14.5)
[2020-01-16 12:48] LABS: CALCIUM 8.7 mg/dL (8.5-10.1); CREATININE 1.2 mg/dL (0.7-1.3)
--- NOTE | 2020-01-16 18:06 | NUR ---
PT ARRIVED TO UNIT AT APPROX 1645 FROM [facility]. PT DROWSY, ON 4L O2, AROUSES EASILY, ORIENTED X4. PT WC BOUND AND ON BEDREST. ADMISSION COMPLETE. CARDIOLOGY SPORTS THERAPIST NOTFIED OF ARRIVAL AND PT RESPIRATORY STATUS. ORDERS RECEIVED. R ARM SITE DRY AND INTACT, DRIED BLOOD NOTED ON DRESSING. PT CURRENTLY SLEEPING IN BED. VSS. O2 SAT 95 AND ABOVE ON 4L. BONE IN PLACE FROM FACILITY. SPOUSE NOTIFIED OF ARRIVAL AND UPDATED ON POC. WILL CONT TO MONITOR AND FOLLOW POC. WILL PASS ON REPORT TO NOC RN.
[2020-01-16 19:46] VITALS: BP 128/92
[2020-01-16 23:48] VITALS: BP 132/62
[2020-01-17 05:00] VITALS: BP 106/48
--- NOTE | 2020-01-17 06:40 | NUR ---
ASSUME CARE 1900. PT/VITALS STABLE. INTERMITTENT JOHNNIE TRNDERNESS FROM CATH SITE. VERY POOR TOLERANCE TO ACTIVITY AND NEEDS MORE EDUCATION AND ENCOURAGEMENT TO MOVE EXTREMITIES. WEAKNESS NOTED WITH RUE/RLE. 4+ EDEMA NOTED ON RUE ASSESSMENT CHARTED. PROGRESSING WELL WITH POC. SITE IS INTACT WITH SOME MILD DRIED DRAINAGE. PLAN IS POSSIBLE DISCHARGE TODAY BACK TO FACILITY. WILL CONTINUE TO MONITOR AND FOLLOW WITH POC
[2020-01-17 08:04] LABS: HEMATOCRIT 31.2 % (42.0-52.0); HEMOGLOBIN 9.6 gm/dL (14.0-18.0); MCH 25.8 pg (26.0-34.0); MCHC 30.7 g/dL (28.0-37.0); MCV 84.2 fL (80.0-100.0); RBC 3.7 mil/uL (4.50-6.00); RDW 19.1 % (10.5-14.5); WBC 8.3 thou/uL (4.0-11.0)
[2020-01-17 08:17] LABS: CREATININE 1.2 mg/dL (0.7-1.3); POTASSIUM 3.9 mmol/L (3.5-5.1)
[2020-01-17 08:23] VITALS: BP 118/58
[2020-01-17 11:11] VITALS: BP 136/57
--- NOTE | 2020-01-17 11:17 | NUR ---
ASSUMED CARE OF PT AT SHIFT CHANGE, WOULDN'T MOVE RUE, AFTER A FEW HOURS DID SO WHEN ENCOURAGED AND STATES IT DOES FEEL BETTER. SWELLING BOTH RUE AND RLE. PT IN GOOD SPIRITS, TURN Q2 HE ALLOWS, TAKES THREE TO MOVE HIM FOR BM AND LARGE POSITION CHANGES. USES CALL LIGHT FOR NEEDS, A&0X4, NONAMBULATORY. SEE SEPARATE INTERVENTIONS FOR ASSESSMENTS
[2020-01-17] MEDS ORDERED: PLAVIX 75 MG TA75 MG PO (11:26)
[2020-01-17] MEDS ORDERED: ASA81BEC PO (11:32)
--- NOTE | 2020-01-17 14:30 | NUR ---
bedside nurse called stated MD ready to dc. cm called rwbr liaison to have dc set up. pt needs to go by stretcher van and on 1 L oxygen. chart copy to be sent, fax dc orders and bedside nurse to call report.
--- NOTE | 2020-01-17 15:03 | NUR ---
SPOKE WITH PROSPER RIGGS THIS A.M. CONCERNING PT, SHE SAID TO CALL A SPECIFIC NUMBER, AMBER, TO GET DETAILS ON PT'S TRANSPORT. ACKNOWLEDGED ORDERS, IN BETWEEN PT CARES/AIDING, AND CALLED. AMBER STATED SHE NEEDS TO CALL ME BACK ONCE SHE FINDS HIS PAPERWORK. PT STATES HE'LL NEED A LARGER W/C AND A MERCEDES FOR HIS TRANSPORT. FAMILY MEMBER HERE TO VISIT. PT DOING WELL, ENCOURAGED W/DEEP SLOW EFFECTIVE BREATHING
[2020-01-17 16:13] VITALS: BP 129/62
--- NOTE | 2020-01-17 16:30 | NUR ---
ccu us called stated pt had dc to [facility] and bedside staff forgot to send his personal belonging back with him. education to elizabeth bag with his name and will check on sunday about getting his belonging sent to [facility].
== END 2020-01-17 19:30 ==
LOC: CATH 11:34 → 2N 17:37 → CATH 17:39 → 2N 17:41
PROVIDERS: Nurse Practitioner; ADMIT Internal Medicine; ATTEND Nuclear Medicine Nuclear Cardiology
DX: I11.0 Hypertensive heart disease with heart failure (principal); I50.9 Heart failure, unspecified; I82.B11 Acute embolism and thrombosis of right subclavian vein; E66.2 Morbid (severe) obesity with alveolar hypoventilation; E78.00 Pure hypercholesterolemia, unspecified; E11.9 Type 2 diabetes mellitus without complications; J44.9 Chronic obstructive pulmonary disease, unspecified; J96.00 Acute respiratory failure, unspecified whether with hypoxia or hypercapnia; E03.9 Hypothyroidism, unspecified; M10.9 Gout, unspecified; E78.5 Hyperlipidemia, unspecified; F03.90 Unspecified dementia, unspecified severity, without behavioral disturbance, psychotic disturbance, mood disturbance, and anxiety; M79.89 Other specified soft tissue disorders; Z95.0 Presence of cardiac pacemaker; Z79.84 Long term (current) use of oral hypoglycemic drugs; Z79.899 Other long term (current) drug therapy

== ENCOUNTER 2020-01-29 09:22 | Inpatient (IN) | payer OTHER ==
[~2020-01-29] VITALS: Ht 185.4 cm; Wt 144.7 kg
[~2020-01-29 09:22] MED LIST changes: +ASA81BEC PO; +PLAVIX 75 MG TA75 MG PO
[2020-01-29 09:24] VITALS: BP 149/63
[2020-01-29 10:03] LABS: BE(vivo) 6.7 mmol/L (-2 to +3); HCO3 34.3 mmol/L (22.0-26.0); PCO2 66.2 mmHg (35.0-45.0); PO2 149.7 mmHg (80.0-100.0); pH 7.332 (7.360-7.450); sO2 98.7 % (92.0-98.0)
[2020-01-29 10:09] LABS: ABSOLUTE NEUTROPHILS 4.8 thou/uL (1.4-8.2); BASOPHILS 0.3 % (0.0-2.0); EOSINOPHILS 0.5 % (0.0-3.0); HEMOGLOBIN 9.3 gm/dL (14.0-18.0); LYMPHOCYTES 17.8 % (24.0-44.0); MCH 25.5 pg (26.0-34.0); MCHC 30.9 g/dL (28.0-37.0); MCV 82.5 fL (80.0-100.0); MONOCYTES 9.7 % (1.0-8.0); PLATELET COUNT 227 thou/uL (150-400); POLYS 71.7 % (36.0-66.0); RBC 3.63 mil/uL (4.50-6.00); RDW 19.2 % (10.5-14.5); WBC 6.6 thou/uL (4.0-11.0)
[2020-01-29 10:23] LABS: CREATININE 1.3 mg/dL (0.7-1.3); POTASSIUM 3.4 mmol/L (3.5-5.1)
[2020-01-29 10:30] LABS: ALBUMIN 2.5 g/dL (3.4-5.0); TOTAL BILIRUBIN 0.2 mg/dL (0.2-1.0); TOTAL PROTEIN 7.2 g/dL (6.4-8.2)
--- NOTE | 2020-01-29 10:39 | NUR ---
IV TEAM IN ROOM FOR IV ACCESS
--- NOTE | 2020-01-29 12:19 | EKG ---
[facility] [place] [address] ELECTROCARDIOGRAM REPORT Name: HOLDEN DE LA PAZ Room #: REG [facility]#: [id number] Admission: 01/29/20 Attend Phys: Discharge: Date of : 44 Report #: [id number] THIS REPORT FOR: cc: Bill Platt MD, Shyam MD Santiago,Tal BOO [facility] ~ THIS REPORT FOR: //name// [facility] ED Test Date: 2020-01-29 Test Time: 10:09:29 Pat Name: HOLDEN DE LA PAZ Department: Room: Gender: Supervisor [employer]: [facility] : 1940 Requested By: Bipin Varela Order Number: [id number] MD: Tal Gabriel Measurements Intervals [place] Rate: 86 P: -10 NH: 212 QRS: -82 QRSD: 162 T: 88 QT: 424 QTc: 508 Interpretive Statements Sinus rhythm Borderline prolonged [place] interval RBBB and LAFB Compared to ECG 12/20/2019 06:48:27 No significant changes Electronically Signed On 01-29-2020 12:19:22 INGOT HEADER by Tal Gabriel [email or web address] <ELECTRONICALLY SIGNED> By: Tal Gabriel MD, FACC 01/29/20 1219 1009 1009 Tal Gabriel MD, FAC /EPI
[2020-01-29 12:46] LABS: URINE BILIRUBIN NEGATIVE (Negative); URINE BLOOD 3+ (Negative); URINE COLOR YELLOW; URINE GLUCOSE-RANDOM* NEGATIVE (Negative); URINE KETONES NEGATIVE (Negative); URINE LEUKOCYTES-REFLEX 2+ (Negative); URINE NITRITE-REFLEX POSITIVE (Negative); URINE PROTEIN (DIPSTICK) 2+ (Negative); URINE UROBILINOGEN 0.2 E.U./dl (0.2-1.0)
[2020-01-29 12:47] LABS: URINE CLARITY CLOUDY
[2020-01-29 12:49] LABS: BACTERIA-REFLEX >30 Many /HPF (None Seen); CRYSTALS None Seen /LPF (None Seen); SQUAMOUS None Seen /LPF (0-3); URINE RBC >20 Many /HPF (0-2)
[2020-01-29 18:16] VITALS: BP 122/60
[2020-01-29 19:20] VITALS: BP 147/61
[2020-01-29 20:57] VITALS: BP 110/52
[2020-01-30 04:59] VITALS: BP 115/61
[2020-01-30 05:49] LABS: ABSOLUTE NEUTROPHILS 5.2 thou/uL (1.4-8.2); BASOPHILS 0.5 % (0.0-2.0); EOSINOPHILS 0.1 % (0.0-3.0); HEMATOCRIT 33.7 % (42.0-52.0); HEMOGLOBIN 10.2 gm/dL (14.0-18.0); LYMPHOCYTES 11.4 % (24.0-44.0); MCH 25.4 pg (26.0-34.0); MCHC 30.2 g/dL (28.0-37.0); MCV 84.1 fL (80.0-100.0); MONOCYTES 4.6 % (1.0-8.0); PLATELET COUNT 200 thou/uL (150-400); POLYS 83.4 % (36.0-66.0); RBC 4.01 mil/uL (4.50-6.00); RDW 18.4 % (10.5-14.5); WBC 6.2 thou/uL (4.0-11.0)
[2020-01-30 06:15] LABS: ALBUMIN 2.3 g/dL (3.4-5.0); CREATININE 1.2 mg/dL (0.7-1.3); MAGNESIUM 1.9 mg/dL (1.8-2.4); TOTAL BILIRUBIN 0.2 mg/dL (0.2-1.0); TOTAL PROTEIN 7.3 g/dL (6.4-8.2)
[2020-01-30 06:18] LABS: POTASSIUM 4.5 mmol/L (3.5-5.1)
[2020-01-30 07:48] VITALS: BP 135/66
[2020-01-30 08:52] LABS: BE(vivo) 4.3 mmol/L (-2 to +3); HCO3 32.7 mmol/L (22.0-26.0); sO2 82.3 % (92.0-98.0)
[2020-01-30 08:53] LABS: PCO2 71.6 mmHg (35.0-45.0); PO2 53.6 mmHg (80.0-100.0); pH 7.278 (7.360-7.450)
[2020-01-30 11:10] VITALS: BP 142/62
[2020-01-30 15:28] VITALS: BP 142/68
--- NOTE | 2020-01-30 15:38 | NUR ---
INITIAL ASSESSMENT: Received consult. CYNTHIA reviewed chart and spoke with nursing and attending physician. Pt was admitted from [facility] [place] due to AMS. Pt was placed in Enhanced Isolation due to positive COVID test. Pt has tested postiive at the facility on 01/26. Pt is afebrile and requiring bipap. Pt is on IV steroids and IV abx. Pt has started course of Remdesivir. No weekend discharge planned. CYNTHIA spoke with pt's , Bibi, via phone. Introduced role of CYNTHIA. Pt lives in watermelon inspector care at [place]. Pt is normally in a w/c or bed bound. Pt's states pt does enjoy working with therapy to try to stand and get out of bed. Pt's confirms plan is for pt to return to [place] when medically stable. CYNTHIA faxed DPOA ppwk to the 3W nurses station to place on pt's chart. Contact info for pt's dtr and son provided. CYNTHIA updated info. Clinical info will need to be faxed to the facility on Sunday. Updated [facility] post-acute liaison. CYNTHIA is following to assist as needed with discharge planning.
--- NOTE | 2020-01-30 19:54 | NUR ---
PATIEN TO CON ON BIPAP. ABLE TO OPEN EYES AND FOLLOW MINIMAL DIRECIONS. CON ON IV ABT. WILL CONT WITH PLAN OF CARE.
[2020-01-30 20:12] VITALS: BP 113/66
[2020-01-31 04:16] VITALS: BP 142/77
[2020-01-31 08:28] LABS: HEMATOCRIT 33.5 % (42.0-52.0); HEMOGLOBIN 10.5 gm/dL (14.0-18.0); MCH 25.8 pg (26.0-34.0); MCHC 31.3 g/dL (28.0-37.0); MCV 82.4 fL (80.0-100.0); RBC 4.06 mil/uL (4.50-6.00); RDW 18.6 % (10.5-14.5); WBC 6.9 thou/uL (4.0-11.0)
[2020-01-31 08:41] LABS: CALCIUM 8.4 mg/dL (8.5-10.1); CREATININE 1.2 mg/dL (0.7-1.3); POTASSIUM 4.6 mmol/L (3.5-5.1)
[2020-01-31 09:22] VITALS: BP 167/77
[2020-01-31 12:49] VITALS: BP 173/53
[2020-01-31 17:29] VITALS: BP 165/65
--- NOTE | 2020-01-31 17:58 | NUR ---
PATIENT CONT TO HAVE EDEMA TO BILAT LOWER EXTREMITIES AND UE. HE DENIES PAIN. SOME BLISTERS NOTED TO LUIS CARLOS ENGLISH. WILL MONITOR THESE. PATIENT TAKEN OFF BIPAP AND CONT ON OXYGEN VIA N/C AT 6L AND OXYGEN SAT HAS REMAINED ABOVE 90% AT TIS TIME.
[2020-01-31 19:47] VITALS: BP 137/59
--- NOTE | 2020-02-01 02:38 | NUR ---
PT LYING IN BED. DENIES PAIN. RESTING COMFORTABLY. NO NEEDS VOICED. CALL LIGHT WITHIN REACH. FREQUENT OBSERVATION.
[2020-02-01 03:52] VITALS: BP 181/64
[2020-02-01 06:53] LABS: HEMATOCRIT 32.4 % (42.0-52.0); MCHC 30.8 g/dL (28.0-37.0); MCV 81.2 fL (80.0-100.0); RBC 3.99 mil/uL (4.50-6.00); RDW 18.9 % (10.5-14.5); WBC 6.6 thou/uL (4.0-11.0)
[2020-02-01 07:10] LABS: ALBUMIN 2.7 g/dL (3.4-5.0); CALCIUM 8.7 mg/dL (8.5-10.1); CREATININE 1.2 mg/dL (0.7-1.3); DIRECT BILIRUBIN 0.2 mg/dL (<0.1-0.2); TOTAL BILIRUBIN 0.4 mg/dL (0.2-1.0)
[2020-02-01 07:12] LABS: POTASSIUM 3.5 mmol/L (3.5-5.1)
[2020-02-01 07:36] VITALS: BP 173/57
[2020-02-01 11:32] VITALS: BP 166/54
[2020-02-01 15:56] VITALS: BP 184/59
--- NOTE | 2020-02-01 19:26 | NUR ---
PATIENT HAD A LARGE LOSS STOOL THIS PM. SAMPLE SENT TO LAB FOR CDIFF. HE APPEARS RESTLESS. DOES NOT SEEM TO BE IN PAIN UNLES WHEN MOVED. BONE IN PLACE AND CONT ON NC AND OXYGEN SATS HAVE BEEN GOOD THROUGH THE DAY. WILL CONT [facility] PLAN OF CARE.
[2020-02-01 20:50] VITALS: BP 182/77
[2020-02-02 06:17] LABS: ABSOLUTE NEUTROPHILS 5.9 thou/uL (1.4-8.2); BASOPHILS 0.1 % (0.0-2.0); HEMATOCRIT 37.4 % (42.0-52.0); HEMOGLOBIN 11.4 gm/dL (14.0-18.0); LYMPHOCYTES 9.9 % (24.0-44.0); MCH 25.2 pg (26.0-34.0); MCHC 30.5 g/dL (28.0-37.0); MCV 82.5 fL (80.0-100.0); MONOCYTES 5.7 % (1.0-8.0); PLATELET COUNT 238 thou/uL (150-400); POLYS 84.3 % (36.0-66.0); RBC 4.53 mil/uL (4.50-6.00); RDW 18.8 % (10.5-14.5)
[2020-02-02 06:26] LABS: MAGNESIUM 2.3 mg/dL (1.8-2.4); PHOSPHORUS 1.8 mg/dL (2.5-4.9)
[2020-02-02 06:31] LABS: ALBUMIN 2.9 g/dL (3.4-5.0); CALCIUM 8.9 mg/dL (8.5-10.1); DIRECT BILIRUBIN 0.2 mg/dL (<0.1-0.2); POTASSIUM 4.1 mmol/L (3.5-5.1); TOTAL BILIRUBIN 0.4 mg/dL (0.2-1.0); TOTAL PROTEIN 7.2 g/dL (6.4-8.2)
--- NOTE | 2020-02-02 07:04 | HC ---
[facility] [place] [address] CONSULTATION Name: HOLDEN DE LA PAZ Room #: 354-P ADM IN M.R.#: [id number] Admission: 01/29/20 Attend Phys: Gatito Dalal MD Discharge: Date of : 42 Report #: [id number] THIS REPORT FOR: cc: Bill Platt MD, Shyam MD Barry, Joseph W. MD ~ DATE OF SERVICE: 01/30/2020 INFECTIOUS DISEASE CONSULTATION ATTENDING PHYSICIAN: Dr. Dalal. REASON FOR EVALUATION: COVID-19 infection, also complicated urinary tract infection. HISTORY OF SUBJECTIVE: Chart reviewed, patient examined. This is a 79-year-old gentleman with extensive medical history including cardiomyopathy with congestive heart failure, has diabetes mellitus type 2, who presented to the Emergency Room with marked encephalopathy. He is normally a resident of a facility, also noted some hematuria. He was confirmed to have tested positive for COVID. At this point, he is not particularly responsive. He is maintained on BiPAP, FiO2 of 80. Additional evaluation noted ABGs at ER, pH 7.332, pCO2 of 66.2, pO2 of 149.7 on 3 liters; however, repeat ABGs was found to have 7.275, pCO2 of 71.6, pO2 of 53.6 on a FiO2 of 80. Chest x-ray showed cardiomegaly with vascular congestion with bilateral pulmonary infiltrates. Blood cultures are sterile thus far. Urinalysis did show moderate to marked pyuria as well. It is notable, he had a previous urinary tract infection in December with growth of Pseudomonas aeruginosa that were multiple resistant. Current culture has growth of Proteus mirabilis. ALLERGIES: None known. CURRENT MEDICATIONS: Include enoxaparin, aspirin, atorvastatin, clopidogrel, tamsulosin, loratadine, cefepime, methylprednisolone, carvedilol, furosemide, remdesivir. PAST MEDICAL HISTORY: BPH, gout, hyperlipidemia, hypothyroidism, morbid obesity, peripheral vascular disease, reflux, cardiomyopathy with congestive heart failure, hypertension, has pacemaker, diabetes mellitus type 2, peripheral neuropathy. SOCIAL HISTORY: Former smoker. No ethanol. FAMILY HISTORY: Noncontributory. [facility] [address] [place] [address] CONSULTATION Name: HOLDEN DE LA PAZ Room #: 354-P [facility] IN .R.#: [id number] Admission: 01/29/20 Attend Phys: Gatito Dalal MD Discharge: Date of : 42 Report #: [id number] REVIEW OF SYSTEMS: Unobtainable. PHYSICAL EXAMINATION: GENERAL: He appears chronically ill with acute component. He is not arousable. He is obese. VITAL SIGNS: Temperature 98.3, pulse 61, respirations 18, blood pressure is 142/62. SKIN: Warm, dry, no rashes. HEENT: Remarkable for a thick neck. He does have BiPAP mask in place. LUNGS: Diminished breath sounds overall, scattered coarse. HEART: Distant, appears regular. ABDOMEN: Obese, soft. There are no peritoneal signs. I am not able to elicit any tenderness. GENITOURINARY AND RECTAL: Deferred. LABORATORY DATA: Urine culture with growth of Proteus as mentioned above. Most recent ABGs: pH 7.278, pCO2 of 71.6, pO2 of 53.6, it raises question whether this is arterial. Chest x-ray as described above. Blood cultures sterile thus far. Electrolytes: Sodium 134, potassium 4.5, chloride 99, bicarbonate is 30, anion gap of 5, BUN and creatinine 26 and 1.2, albumin of 2.3. Total protein 7.3. CBC: White count of 6.2, H and H 10.2 and 33.7, platelets of 200. Urinalysis: Marked pyuria, does have hematuria as well as bacteriuria. COVID testing was confirmed positive. CT of the head, no acute intracranial process. Lactic acid 0.3. ASSESSMENT: COVID-19 positive. Clearly, he has pneumonitis, likely multifactorial including cardiac issues as well. He also has a complicated urinary tract infection, apparently due to Proteus mirabilis. Agree with empiric therapy. We will continue cefepime for the latter, remdesivir and corticosteroids for the former. He remains critically ill. Continue maximal supportive care, diuresis as able. We will discuss with Dr. Carrasco. <ELECTRONICALLY SIGNED> By: Bennett Day MD 02/02/20 0704 [id number] Bennett Day MD /nt
--- NOTE | 2020-02-02 07:16 | NUR ---
ASSUMED CARE AT 1900. PT UNCOOPERATIVE W/CARES, DID NOT UNDERSTAND WHY STAFF NEEDED VS, BLOOD SUGARS OR TO TURN HIM; TOOK TWO STAFF MEMBERS TO GET VS AND BLOOD SUGARS. PT ON 6L O2, REFUSED TO WEAR BIPAP; TOOK O2 OFF MULTIPLE TIMES AND WOULD DESAT TO LOW 80'S, TAKE SEVERAL MINUTES TO RETURN TO 90'S, SO INCREASED O2 TO 7L. A-PACING W/UNDERLYING AFIB AND BBB ON TELE. HAD A LIQUID/WATERY STOOL OVERNIGHT. PT REFUSED TURNING, FINALLY ALLOWED WHEN HE NEEDED TO BE CLEANED UP; NOTED A SMALL, DIME-SIZED OPEN AREA AT COCCYX, WELL A DTI ON THE LEFT HEEL. CHARTED BOTH UNDER WOUND DOCUMENTATION, BUT ASKED DAY RN TO PHOTOGRAPH BOTH SITES. POOR ORAL INTAKE, REFUSED THICKENED LIQUIDS. NO OTHER CONCERNS, SHIFT REPORT GIVEN 0700.
[2020-02-02 07:59] VITALS: BP 176/71
--- NOTE | 2020-02-02 09:36 | NUR ---
WOUND CONSULT; REVIEWED THE PICTURES WITH THE RN DUE TO COVID RESTRICTIONS. THE PATIENT HAS BRUISING TO THE LEFT HEEL CONSISTANT WITH A DEEP TISSUE INJURY AND THE SKIN IS INTACT. THE LEFT BUTTOCK IS A STAGE 2 TO THE LEFT BUTTOCKS REPORTED WITH SCANT DRAINAGE. NO ODOR. RECOMMENDATIONS; 1-LEFT HEEL OFFLOAD WITH A PRAFO BOOT. 2-ZGUARD TO LEFT BUTTOCKS. 3-ADD A LOW AIR LOSS PUMP DISCUSSED WITH RN
[2020-02-02 18:24] VITALS: BP 161/65
[2020-02-02 18:54] LABS: URINE BILIRUBIN NEGATIVE (Negative); URINE BLOOD 1+ (Negative); URINE COLOR YELLOW; URINE GLUCOSE-RANDOM* NEGATIVE (Negative); URINE KETONES TRACE (Negative); URINE LEUKOCYTES-REFLEX TRACE (Negative); URINE PROTEIN (DIPSTICK) TRACE (Negative); URINE SPECIFIC GRAVITY 1.015 (1.005-1.035); URINE UROBILINOGEN 0.2 E.U./dl (0.2-1.0)
[2020-02-02 18:56] LABS: URINE CLARITY SL HAZY; URINE NITRITE-REFLEX POSITIVE (Negative)
[2020-02-02 19:24] LABS: SQUAMOUS None Seen /LPF (0-3); URINE RBC 0-2 Rare /HPF (0-2); URINE WBC-REFLEX 0-5 Rare /HPF (0-5)
[2020-02-02 19:25] LABS: BACTERIA-REFLEX >30 Many /HPF (None Seen); CASTS None Seen /LPF (None Seen); TRIPLE PHOSPHATE CRYSTALS 4-10 Moderate /LPF (None Seen)
--- NOTE | 2020-02-02 19:28 | NUR ---
PT WAS SEEN BY THIS SHIFT. NO ACUTE PROCESSES NOTED FOR THE PATIENT. PT HAS BEEN ON 7L/NC THIS SHIFT AND HAS BEEN SATTING AT 100% WITH EXERTION AND MOVEMENT PATIENT WAS SEEN TO DESAT TO 80s. PT'S WAS ON THE PHONE AND WAS SUCCESSFUL IN CONSOLING THE PT TO PARTAKE IN CARE. RN WROTE THE 'S NUMBER ON THE BOARD FOR USE AND INITATED THIS PLAN. PT HAS BEEN REFUSING ACCUCHECKS AT THE BEGINNING OF THE SHIFT AND REFUSED CARE. IT HAS BEEN DIFFICULT TO GET THE PT TO PARTAKE IN CARE TODAY, PT STATED BEING TOO TIRED AND JUST WANTING TO REST. PRAFO BOOT IS IN PLACE TO L FOOT ONLY R/T R LEG PUSTULE/LOW AIRLOSS PUMP IS IN PLACE FOR SACRAL WOUND. STORM EAGLE/GABRIEL COFFMAN RNS SAW THE PT TODAY WELL. ALL MEDICATIONS GIVEN PER ORDER. PT HAS BEEN PLACED ON A HIGHER NUTRITIONAL DIET BY DIETARY THIS SHIFT. RN SIGNING OFF NOW
[2020-02-02 20:11] VITALS: BP 168/65
[2020-02-03 03:51] VITALS: BP 163/76
[2020-02-03 06:02] LABS: ALBUMIN 2.7 g/dL (3.4-5.0); CALCIUM 8.7 mg/dL (8.5-10.1); DIRECT BILIRUBIN 0.1 mg/dL (<0.1-0.2); PHOSPHORUS 1.6 mg/dL (2.5-4.9); POTASSIUM 3.4 mmol/L (3.5-5.1); TOTAL BILIRUBIN 0.3 mg/dL (0.2-1.0); TOTAL PROTEIN 6.7 g/dL (6.4-8.2)
--- NOTE | 2020-02-03 06:07 | NUR ---
ASSUMED CARE AT 1900. PT UNCOOPERATIVE W/CARES AND TAKING MEDICATIONS. AFTER TALKING TO PT'S ON PHONE, CALLED HER BACK FROM IN HIS ROOM SO SHE COULD TALK TO HIM AND GET HIM TO TAKE MEDICATIONS. STARTED PO VANC. PT REFUSED TURNS. A-PACING OVERNIGHT, WITH FREQ BURSTS OF HR AT 130; ONE EPISODE POSSIBLE VT 12 BEAT RUN, HOWEVER BLACK LEAD WAS ON TOP OF THE PACEMAKER AND BROWN LEAD WAS IN UPPER LEFT POSITION. PT DENIED FEELING HIS HEART RACE. PRAFO BOOT ON LEFT FOOT. NO OTHER CONCERNS.
[2020-02-03 07:53] VITALS: BP 158/80
[2020-02-03 11:37] VITALS: BP 115/72
--- NOTE | 2020-02-03 13:32 | NUR ---
PT ALERT AND ORIENTED TIMES TWO, WITH BLUNTED AFFECT. VSS. BONE TO DD. PT DENIES PAIN. PT TOLERATES MEDS. REFUSESD MEALS TODAY. SPOKE WITH PT TO LUIS ON CARE. WILL CONTINUE TO MONITOR.
--- NOTE | 2020-02-03 14:17 | NUR ---
CYNTHIA reviewed chart and spoke with nursing and attending physician. Pt remains in Enhanced Isolation due to COVID-19. Pt is afebrile and on 7L of O2. Pt is on IV abx and IV steroids. Pt is completing course of Remdesivir. CYNTHIA faxed clinical/therapy info to [facility] for review. Updated [place] post-acute liaison. Anticipate discharge back to the facility soon. Will need insurance authorization for skilled level of care. CYNTHIA is following to assist as needed with discharge planning.
[2020-02-03 15:33] VITALS: BP 140/68
[2020-02-03 19:51] VITALS: BP 164/88
--- NOTE | 2020-02-04 03:34 | NUR ---
PT AOX1-3, WITH INTERMITTENT FORGETFULNESS, AND CONFUSION. PT NOTED TO HAVE IRRITABLE MOOD. PT DENIES PAIN AND SOB WHILE ON 7L VIA NC. PT RESTING IN BED THROUGHOUT SHIFT, FREQUENT REPOSITIONING ENCOURAGED. PT REFUSING REPOSITIONING ASSISTANCE DUE TO REPORTS OF COMFORT. LOW AIR LOSS MATTRESS REMAINS IN PLACE. PT TOLERATING PO INTAKE OF HONEY THICK FLUIDS AND PUREED DIET WITHOUT ISSUE. PT WITHOUT BM THIS SHIFT, BONE REMAINS IN PLACE AND PATENT. PT ENCOURAGED TO NOTIFY STAFF FOR ALL NEEDS, CALL LIGHT WITHIN REACH, BED ALARM ON, BED IN LOWEST POSITION, FREQUENT MONITORING WILL CONTINUE.
[2020-02-04 03:55] VITALS: BP 174/88
[2020-02-04 07:14] LABS: ALBUMIN 2.7 g/dL (3.4-5.0); DIRECT BILIRUBIN 0.1 mg/dL (<0.1-0.2); TOTAL BILIRUBIN 0.3 mg/dL (0.2-1.0); TOTAL PROTEIN 6.9 g/dL (6.4-8.2)
[2020-02-04 07:27] LABS: CALCIUM 8.8 mg/dL (8.5-10.1); CREATININE 0.9 mg/dL (0.7-1.3); POTASSIUM 3.7 mmol/L (3.5-5.1)
[2020-02-04 07:33] VITALS: BP 176/76
[2020-02-04 11:13] VITALS: BP 134/58
[2020-02-04 15:14] VITALS: BP 151/60
--- NOTE | 2020-02-04 15:23 | NUR ---
CYNTHIA reviewed chart and spoke with nursing. Pt remains in Enhanced Isolation due to COVID-19. Pt is afebrile and requiring 7L of O2. Pt is on IV abx and IV steroids. Pt has finished course of Remdesivir. SW provided updated Mobile of post-acute liaison. Pt's insurance has waived authorization for skilled level of care at this time. CYNTHIA spoke with pt's , Bibi, via phone to provide update and discuss discharge plan. Pt's is agreeable with plan. CYNTHIA is following to assist as needed with discharge planning.
--- NOTE | 2020-02-04 19:14 | NUR ---
1900 ASSUMED CARE OF PT AFTER REPORT 191 BASELINE ASSESSMENT COMPLETED, PT RESTING IN BED, POSITION CHANGED TO SUPINE, BOOT IN PLACE TO LLE, DENIES CHEST PAIN OR SOA, O2 3L NC 98% LUNGS DIMINISHED THROUGHOUT A+O X [address]
--- NOTE | 2020-02-04 19:17 | NUR ---
PATIENT CONT TO PROGRESS TOWARD DISCHARGE GOALS. HIS HR HOWEVER HAS BEEN SWINGING FROM 60 TO 120 IN A MATTER OF MINUTES. PATEINTIS CONFUSED MOST OF THE TIME. PREFERS TO DRINK THIN LIQUIDS BUT HE IS NOTED TO ASPIRATE EACH TIME.
[2020-02-04 19:36] VITALS: BP 155/84
[2020-02-04 23:43] VITALS: BP 112/66
[2020-02-05 05:45] LABS: CALCIUM 8.6 mg/dL (8.5-10.1); CREATININE 0.9 mg/dL (0.7-1.3); POTASSIUM 3.9 mmol/L (3.5-5.1)
[2020-02-05 08:20] VITALS: BP 165/75
[2020-02-05 11:30] VITALS: BP 142/62
--- NOTE | 2020-02-05 11:45 | NUR ---
ORDERS RECEIVED AGAIN FOR EVAL AND TREAT. Pt WAS EVALUATED ON 02/02/20. Pt IS BED BOUND AND DID NOT MEET CRITERIA FOR SKILLED SERVICES IN THE ACUTE SETTING. Pt IS PLANNING ON RETURNING TO [facility] AND INSURANCE HAS WAIVED AUTHORIZATION FOR SKILLED STAY. WILL DEFER ANOTHER RE-EVALUATION Pt HAS NOT CHANGED SINCE LAST EVAL.
--- NOTE | 2020-02-05 12:56 | NUR ---
Nutrition Recommendation: Recommend initiate PPN of Clinimix D5+4.25% @125mL/hr to supplement PO intakes and provide 100% of min protein needs for wound healing. Pt continues to have inadequate intakes needed for wound healing demands.
--- NOTE | 2020-02-05 14:34 | NUR ---
CYNTHIA reviewed chart and spoke with nursing and attending physician. Pt remains in Enhanced Isolation due to COVID-19. Pt is afebrile and on 4L of O2. Pt is on IV steroids. ST arguello ordered to evaluate pt's swallowing, as he was not on pureed diet or thickened liquids at the facility. Recommendation continues for pt to be on a pureed diet with nectar thickened liquids. CYNTHIA provided update to [place] post-acute liaison. Discharge is anticipated in 1-2 days. CYNTHIA is following to assist as needed with discharge planning.
[2020-02-05 15:51] VITALS: BP 149/80
[2020-02-05 21:46] VITALS: BP 136/67
[2020-02-06 02:06] LABS: GLYCOHEMOGLOBIN (HGB A1C) 7.4 % (4.8-5.6)
[2020-02-06 04:00] VITALS: BP 157/75
--- NOTE | 2020-02-06 04:58 | NUR ---
ASSESSMENT DOCUMENTED.PT BEEN RESTING IN NO ACUTE DISTRESS.A/OX2-3 W/FORGETFULNESS.ON OXYGEN AT 4LITERS PNC.NO RESP DISTRESS NOTED.TOTAL CARE W/ADLS.INCONT OF BLADDER.PERICARE GIVEN W/EVERY INCONTINENCE.NO SIGNIFICANT CHANGES NOTED THIS NOC.WILL CONT TO MONITOR PER POC.
[2020-02-06 05:00] VITALS: BP 157/75
[2020-02-06 07:35] VITALS: BP 146/62
[2020-02-06 11:35] VITALS: BP 139/62
[2020-02-06] MEDS ORDERED: FELODIPINE 5 MG5 M1 PO (11:37)
[2020-02-06] MEDS ORDERED: PREDNISONE 20 M20 MG PO (11:37)
[2020-02-06] MEDS ORDERED: BENICAR40 MG PO (11:37)
[2020-02-06] MEDS ORDERED: FIRVANQ50 MG/1 ML PO (11:37)
[2020-02-06] MEDS ORDERED: CARVEDILOL25 MG PO (11:37)
--- NOTE | 2020-02-06 14:13 | NUR ---
DISCHARGE NOTE: CYNTHIA reviewed chart and spoke with nursing and attending physician. Pt remains in Enhanced Isolation due to COVID-19. Pt is afebrile and on 3L of O2. Pt is medically stable to return to [facility] today. CYNTHIA notified [place] post-acute liaison. Stretcher van transportation scheduled for [phone] per facility's arrangements. CYNTHIA spoke with pt's , Bibi, via phone to provide update and notify of pt's discharge. Pt's is aware and agreeable with plan. Pt's requesting a repeat COVID test when pt returns to [place], as he has had multiple negative tests in the past. SW notified [place] liaison of request. SW faxed discharge orders/summary to [facility]. CYNTHIA contacted attending physician for facility d/c orders for therapy. Awaiting updated discharge orders. Will fax once updated. Nursing notified of transportation time and provided with number for report. No additional SW needs identified at this time, but is available to assist should needs arise.
--- NOTE | 2020-02-06 16:19 | NUR ---
PATIENT DISCHARGED AT THIS TIME TO [facility]. HE IS ALERT ORIENTED TO SELF. KEEPS INSISTING HE WANT TO DRINK REG FLUIDS. CALLED [place] WAS KEPT ON HOLD FOR MORE THAN 30 MINS FOR REPORT.
== END 2020-02-06 15:37 | DRG 871 ==
LOC: ER 09:22 → EROBS 13:21 → 3W 13:21
PROVIDERS: Emergency Medicine; Hospitalist; Internal Medicine; Internal Medicine Pulmonary Disease; Specialist; ADMIT Internal Medicine; ATTEND Internal Medicine
PROC: 5A09357 Assistance with Respiratory Ventilation, Less than 24 Consecutive Hours, Continuous Positive Airway Pressure (ICD-10-PCS; principal; 2020-01-29)
PROC: 5A09357 Assistance with Respiratory Ventilation, Less than 24 Consecutive Hours, Continuous Positive Airway Pressure (ICD-10-PCS; 2020-01-30)
PROC: XW033E5 Introduction of Remdesivir Anti-infective into Peripheral Vein, Percutaneous Approach, New Technology Group 5 (ICD-10-PCS; 2020-01-30)
PROC: 5A09357 Assistance with Respiratory Ventilation, Less than 24 Consecutive Hours, Continuous Positive Airway Pressure (ICD-10-PCS; 2020-01-31)
PROC: 5A09357 Assistance with Respiratory Ventilation, Less than 24 Consecutive Hours, Continuous Positive Airway Pressure (ICD-10-PCS; 2020-02-01)
DX: A41.89 Other specified sepsis (principal); E11.10 Type 2 diabetes mellitus with ketoacidosis without coma; U07.1 COVID-19; G92 Toxic encephalopathy; J12.89 Other viral pneumonia; J96.21 Acute and chronic respiratory failure with hypoxia; J96.22 Acute and chronic respiratory failure with hypercapnia; I50.23 Acute on chronic systolic (congestive) heart failure; N39.0 Urinary tract infection, site not specified; Z68.41 Body mass index [BMI] 40.0-44.9, adult; I42.9 Cardiomyopathy, unspecified; E87.0 Hyperosmolality and hypernatremia; I47.1 Supraventricular tachycardia; M10.9 Gout, unspecified; E78.5 Hyperlipidemia, unspecified; E03.9 Hypothyroidism, unspecified; E66.01 Morbid (severe) obesity due to excess calories; K21.9 Gastro-esophageal reflux disease without esophagitis; E11.51 Type 2 diabetes mellitus with diabetic peripheral angiopathy without gangrene; E11.40 Type 2 diabetes mellitus with diabetic neuropathy, unspecified; N40.1 Benign prostatic hyperplasia with lower urinary tract symptoms; G89.4 Chronic pain syndrome; Z66 Do not resuscitate; F03.90 Unspecified dementia, unspecified severity, without behavioral disturbance, psychotic disturbance, mood disturbance, and anxiety; I50.82 Biventricular heart failure; I27.20 Pulmonary hypertension, unspecified; B96.4 Proteus (mirabilis) (morganii) as the cause of diseases classified elsewhere; G47.33 Obstructive sleep apnea (adult) (pediatric); I08.1 Rheumatic disorders of both mitral and tricuspid valves; E11.65 Type 2 diabetes mellitus with hyperglycemia; E78.00 Pure hypercholesterolemia, unspecified; E87.6 Hypokalemia; E83.39 Other disorders of phosphorus metabolism; T38.0X5A Adverse effect of glucocorticoids and synthetic analogues, initial encounter; Y92.89 Other specified places as the place of occurrence of the external cause; Z95.0 Presence of cardiac pacemaker; Z87.891 Personal history of nicotine dependence; Z79.899 Other long term (current) drug therapy
CPT/HCPCS: 10879

== ENCOUNTER 2020-03-02 18:34 | Inpatient (IN) | payer OTHER ==
[~2020-03-02] VITALS: Ht 177.8 cm; Wt 157.2 kg
--- NOTE | ~2020-03-02 | EMS ---
[facility] [address] [place] [address] EMS Patient Care Report Name: HOLDEN DE LA PAZ Room #: REG PACHECO Valdez#: [id number] Admission: 03/02/20 Attend Phys: Discharge: Date of : 42 Report #: [id number] THIS REPORT FOR: //name// Report Transmitted: 03/02/2020 18:24 EMS Care Summary [place], [place]/[facility] Incident [id number] @ 03/02/2020 17:51 Incident Location [id number] [place] [address] 208 Patient HOLDEN DE LA PAZ Male, 80 Years 1940 Patient Address [address] [place] [id number] Patient History Congestive Heart Failure (CHF),Dementia,Diabetes,Hypertension (HTN),Pacemaker/AICD,Hyperlipidemia,Gastro-Esophageal Reflux Disease (GERD),Morbid Obesity,Cardiac Condition - Other,Pneumonia,Chronic Pain,Hypothyroidism,Chronic Respiratory Failure,Novel Coronavirus (COVID-19), Patient Allergies No known allergies, Patient Medications Atorvastatin, Apixaban, Carvedilol, Allopurinol, Chief Complaint COLD/BUTT PAIN Disposition Transported No Lights/[place] Dispatch Reason Breathing Problem Transported To [facility] [address] [place] [address] EMS Patient Care Report Name: HOLDEN DE LA PAZ Room #: REG PACHECO Valdez#: [id number] Admission: 03/02/20 Attend Phys: Discharge: Date of : 42 Report #: [id number] M36 DISPATCHED ON A BREATHING PROBLEMS. M36 ARRIVED TO LONG TERM TO FIND P28 WAITING OUTSIDE. M36 MADE CONTACT WITH NH STAFF AND PT. PT STATED BEING COLD CHIEF COMPLAINT. PT STATED ADDITIONAL COMPLAINT OF "BUTT PAIN." PT RATED PAIN AT 8/10. PT DENIED SHORTNESS OF BREATH. PT BREATHING LABORED. PT NORMALLY ON 2 LPM OXYGEN VIA NC. PT OXYGEN INCREASED BY EMS TO 4 LPM. NH STAFF STATED PT COVID POSITIVE WHEN INITIALLY ADMITTED IN AUGUST. PT DENIED NAUSEA, VOMITING, DIARRHEA AND FEVER. [facility]. PT VS MONITORED EN ROUTE. PT REPORT GIVEN. PT CARE TRANSFERRED TO ER STAFF AT [facility] WITHOUT INCIDENT. PT MOVED VIA FOUR PERSON SHEET LIFT. M36 PLACED BACK IN SERVICE. Initial Vitals @18:21P: 68,R: 20,Pain: 8/10,GCS: 14,CO: 16,SpO2: 92,Revised Trauma: 12, @18:29P: 126,R: 22,BP: 112/74,Pain: 8/10,GCS: 14,SpO2: 91,Revised Trauma: 12, @18:14P: 70,R: 18,Pain: 8/10,GCS: 14,SpO2: 93,Revised Trauma: 12, Assessments @18:03MENTAL:Confused,Person Oriented,Place Oriented,SKIN:Hot,HEENT:LUNG SOUNDS:ABDOMEN:PELVIS//GI:Incontinence,EXTREMITIES:PULSE:Radial: 2+ Normal,NEURO:Other, Impression Shortness of breath Procedures @18:03ALS AssessmentResponse: UnchangedSucceeded Timeline 17:50,Call Received 17:50,Dispatch Notified 17:51,Dispatched 17:52,En Route 18:00,On Scene 18:02,At Patient 18:03,ALS Assessment,Response: UnchangedSucceeded, 18:14,BP: 90/ M,PULSE: 70,RR: 18 R,SPO2: 93 Ox,ETCO2: ,BG: ,PAIN: 8,GCS: 14, 18:20,Depart Scene 18:21,BP: 90/ M,PULSE: 68,RR: 20 R,SPO2: 92 Ox,ETCO2: ,BG: ,PAIN: 8,GCS: 14, 18:29,BP: 112/74 M,PULSE: 126,RR: 22 R,SPO2: 91 Ox,ETCO2: ,BG: ,PAIN: 8,GCS: 14, 18:30,At Destination 18:39,Call Closed Disclaimer [facility] [address] [place] [address] EMS Patient Care Report Name: HOLDEN DE LA PAZ Room #: REG PACHECO Valdez#: [id number] Admission: 03/02/20 Attend Phys: Discharge: Date of : 42 Report #: [id number] v1.1 Copyright 2020 [employer] This EMS Care Summary contains data elements from the applicable legal record (which may be displayed differently). It is designed to provide pertinent information for the following purposes: continuity of care, clinical quality, and state data reporting. The complete legal record is available to ED staff and administrators of the receiving hospital in [facility]'s Patient Tracker. All data is provided "as is."
[~2020-03-02 18:34] MED LIST changes: +BENICAR40 MG PO; +CARVEDILOL25 MG PO; +FELODIPINE 5 MG5 M1 PO; +FIRVANQ50 MG/1 ML PO; +PREDNISONE 20 M20 MG PO
[2020-03-02 19:03] VITALS: BP 42/10
[2020-03-02 19:27] LABS: HEMOGLOBIN 9.6 gm/dL (14.0-18.0); MCV 81.1 fL (80.0-100.0); RDW 22.6 % (10.5-14.5)
[2020-03-02] MEDS ORDERED: ARTIFICIAL TEAR1510 OPHTHALMIC (19:29)
[2020-03-02 19:30] LABS: HEMATOCRIT 30.5 % (42.0-52.0); MCH 25.5 pg (26.0-34.0); MCHC 31.4 g/dL (28.0-37.0); PLATELET COUNT 242 thou/uL (150-400); RBC 3.76 mil/uL (4.50-6.00)
[2020-03-02] MEDS ORDERED: GLIMEPIRIDE1 MG PO (19:30)
[2020-03-02] MEDS ORDERED: JANUVIA100 MG PO (19:31)
[2020-03-02 19:32] LABS: CALCIUM 8.3 mg/dL (8.5-10.1); CREATININE 4.7 mg/dL (0.7-1.3); POTASSIUM 5.4 mmol/L (3.5-5.1)
[2020-03-02 19:38] LABS: ALBUMIN 1.7 g/dL (3.4-5.0); DIRECT BILIRUBIN 0.3 mg/dL (<0.1-0.2); TOTAL BILIRUBIN 0.9 mg/dL (0.2-1.0); TOTAL PROTEIN 5.5 g/dL (6.4-8.2)
[2020-03-02 20:07] LABS: ABSOLUTE NEUTROPHILS 3.6 thou/uL (1.4-8.2); NUCLEATED RBCS 3 /100WBC
[2020-03-02 20:08] LABS: ANISOCYTOSIS 3+; BURR CELLS 1+; HYPOCHROMASIA 1+; LARGE PLATELETS FEW; OVALOCYTES 1+; PLATELET ESTIMATE NORMAL; POIKILOCYTOSIS 2+; POLYCHROMASIA 1+; SCHISTOCYTES 1+
[2020-03-02 21:08] LABS: BE(vivo) -4.2 mmol/L (-2 to +3); HCO3 20.4 mmol/L (22.0-26.0); PCO2 35.4 mmHg (35.0-45.0); PO2 79.5 mmHg (80.0-100.0); pH 7.378 (7.360-7.450); sO2 95.6 % (92.0-98.0)
[2020-03-02 23:12] LABS: CALCIUM 7.7 mg/dL (8.5-10.1); CREATININE 4.3 mg/dL (0.7-1.3); POTASSIUM 5.5 mmol/L (3.5-5.1)
[2020-03-03] VITALS (65 sets, daily range): BP systolic 69–133; BP diastolic 33–69
[2020-03-03 00:55] LABS: URINE BILIRUBIN NEGATIVE (Negative); URINE BLOOD 3+ (Negative); URINE CLARITY CLOUDY; URINE COLOR YELLOW; URINE GLUCOSE-RANDOM* NEGATIVE (Negative); URINE KETONES NEGATIVE (Negative); URINE NITRITE-REFLEX NEGATIVE (Negative); URINE PROTEIN (DIPSTICK) NEGATIVE (Negative); URINE SPECIFIC GRAVITY 1.015 (1.005-1.035); URINE UROBILINOGEN 0.2 E.U./dl (0.2-1.0)
[2020-03-03 01:15] LABS: URINE LEUKOCYTES-REFLEX 3+ (Negative)
[2020-03-03 01:28] LABS: SQUAMOUS 0-3 Few /LPF (0-3)
[2020-03-03 01:29] LABS: HYALINE CASTS 0-3 Few /LPF (None Seen); MUCUS 0-3 Light strn/LPF (None Seen); URIC ACID CRYSTALS 0-3 Few /LPF (None Seen)
[2020-03-03 05:20] LABS: APTT 31.5 Seconds (24.5-32.8); INR 1.1; PROTIME 10.9 Seconds (9.3-11.4)
[2020-03-03 05:25] LABS: FIBRINOGEN 479.4 mg/dL (210-360)
[2020-03-03 05:48] LABS: CALCIUM 7.8 mg/dL (8.5-10.1); CREATININE 4.2 mg/dL (0.7-1.3); POTASSIUM 4.9 mmol/L (3.5-5.1)
[2020-03-03 06:20] LABS: HEMATOCRIT 37.1 % (42.0-52.0); HEMOGLOBIN 11.4 gm/dL (14.0-18.0); MCH 25.3 pg (26.0-34.0); MCHC 30.9 g/dL (28.0-37.0); MCV 81.8 fL (80.0-100.0); RBC 4.53 mil/uL (4.50-6.00); RDW 22.9 % (10.5-14.5); WBC 9.2 thou/uL (4.0-11.0)
--- NOTE | 2020-03-03 07:17 | NUR ---
PER CHART, PT. BP LOW (94/43, 84/36, 73/37...) ON LEVOPHED AND VASOPRESSIN. WILL DEFER OT EVALUATION UNTIL PT. IS MEDICALLY STABLE. WILL CHECK BACK IN PM.
--- NOTE | 2020-03-03 10:13 | NUR ---
WOUND CONSULT; THE WOUND WAS ASSESSED WITH PICTURES AND THE RN'S ASSESSMENT RE;COVID 19. THE PICTURES/ASSESSMENT ARE THAT ALL THE WOUNDS ARE SUPERFICIAL EXCEPT FOR THE LEFT HEEL. ITS LIKELY A DEEP TISSUE INJURY THAT IS STABLE, NO BLISTERED WHICH MAY RESOLVE ON ITS OWN. THE COCCYX/BUTTOCKS HAS SOME ESCORIATION RE; THE PATIENT HAS DIARRHEA CURRENTLY. THE RIGHT ORR HAS AN AREA SCABLIKE. RECOMMENDATIONS; 1-RIGHT ORR BETADINE,BORDER FOAM 2-LEFT HEEL BETADINE BORDER FOAM (PRAFO BOOTS) 3-BUTTOCKS/COCCYX/SACRUM ZGUARD 4-TURN PATIENT Q2H AT A MINIMUM. DICUSSION WITH THE RN TODAY.
--- NOTE | 2020-03-03 12:46 | NUR ---
ASSUMED CARE OF PT AT 0700. PT IS COMPLAINING OF PAIN OF THE FULL BODY. YOU BARELY TOUCH HIM AND HE HOLLERS IN PAIN. PATIENT IS HAVING FREQUENT LIQUID STOOLS, SO A FECAL MANAGEMENT SYSTEM WAS PLACED.
--- NOTE | 2020-03-03 15:30 | NUR ---
Case opened to follow for dc planning. Pt known to cm from previous admission last month d/t covid pneumonia and was dc'd back to [facility] on 02-06-20. He first tested positive for covid at the custodial on 01/27/20. He is a [facility] care resident there for several years. He is usually up to a w/c or bed bound. He is currently in the ICU and being seen by renal, ID, and pulmonary. He continues to test +covid and is in enhanced ISO. His Bibi is his primary contact and son/dtr as alternates. Nursing has updated his . He is now on 4 liters of O2 and levo for pressure support. DC automatic data processing planner to fax update to the [facility]. They are holding his bed and can accept him for readmission when medically ready. Will follow.
--- NOTE | 2020-03-03 15:34 | NUR ---
FAXED CLINICAL UPDATE TO [facility] SPOKE WITH АННА IN ADM SHE RECEIVED UPDATE. DP TO FOLLOW.
[2020-03-04] VITALS (85 sets, daily range): BP systolic 65–116; BP diastolic 27–70
[2020-03-04 06:04] LABS: HEMATOCRIT 37.8 % (42.0-52.0); HEMOGLOBIN 11.7 gm/dL (14.0-18.0); MCH 25.2 pg (26.0-34.0); MCHC 30.8 g/dL (28.0-37.0); MCV 81.7 fL (80.0-100.0); PLATELET COUNT 270 thou/uL (150-400); RBC 4.63 mil/uL (4.50-6.00); RDW 23.1 % (10.5-14.5); WBC 16.8 thou/uL (4.0-11.0)
[2020-03-04 06:12] LABS: CALCIUM 7.4 mg/dL (8.5-10.1); CREATININE 3.5 mg/dL (0.7-1.3); MAGNESIUM 1.9 mg/dL (1.8-2.4); POTASSIUM 4.9 mmol/L (3.5-5.1)
--- NOTE | 2020-03-04 07:42 | NUR ---
ORDERS FOR EVAL AND TREAT. Pt CONTINUES TO NOT BE STABLE FOR EVAL. Pt WAS SEEN IN JANUARY AND WAS DEPENDENT WITH ALL CARES AND DEEMED NOT APPROPRIATE FOR THERAPY IN THE ACUTE SETTING. WILL HOLD OFF ON EVALUATION AND AWAIT NEW ORDERS WHEN IF Pt APPROPRIATE FOR THERAPY
--- NOTE | 2020-03-04 07:52 | NUR ---
ORDERS RECEIVED, CHART REVIEWED, PATIENT NOT MEDICALLY STABLE FOR OT EVAL, PER EMR, PATIENT FROM [facility], [facility] LIFT/TOTAL ASSIST AT BASELINE. NOT APPROPRIATE FOR ACUTE OT SERVICES. PLEASE RECONSULT IF FUNCTIONAL STATUS CHANGES/IMPROVES. ACUTE OT TO SIGN OFF AT THIS TIME.
[2020-03-04 08:54] LABS: ABSOLUTE NEUTROPHILS 13.8 thou/uL (1.4-8.2); METAMYELOCYTES 2 %; NUCLEATED RBCS 1 /100WBC; PLATELET ESTIMATE NORMAL
[2020-03-04 08:55] LABS: ANISOCYTOSIS 1+
--- NOTE | 2020-03-04 12:23 | NUR ---
RN CALLING IVONE BACK TO GIVE HER AN UPDATE AT [phone]
--- NOTE | 2020-03-04 12:55 | HC ---
[facility] [place] [address] CONSULTATION Name: HOLDEN DE LA PAZ Room #: 237-P ADM IN M.R.#: [id number] Admission: 03/03/20 Attend Phys: Neo Del Valle MD Discharge: Date of : 44 Report #: [id number] THIS REPORT FOR: cc: Bill Platt MD, Shyam MD Barry, Joseph W. MD ~ DATE OF SERVICE: 03/03/2020 INFECTIOUS DISEASE CONSULTATION ATTENDING PHYSICIAN: Dr. Del Valle. REASON FOR EVALUATION: Septic shock, perhaps secondary to complicated urinary tract infection, also post-COVID, may have pneumonitis as well. Chart reviewed, the patient examined. HISTORY OF PRESENT ILLNESS: This is a 80-year-old known to myself, who was hospitalized last week, has some underlying dementia, however, had worsening encephalopathy, was found to be hypoxic and was noted to have hypotension as well. He was referred back to the Emergency Room where he was evaluated and found to be in renal failure with a creatinine of 4.7 on discharge. From previous admission, his creatinine was 0.9. Lactic acid was 3.0. CBC, white count was fairly unremarkable with the exception of some bandemia of 15%. Chest x-ray showed some vascular congestion, perihilar infiltrates. Influenza antigen was negative. ABGs: pH 7.378, pCO2 of 35.4, pO2 of 79.5 and that was on 4 liters. Procalcitonin was markedly elevated at 19.22. Urinalysis did show moderate pyuria. Coronavirus PCR is still positive. He is still quite confused, complains about abdominal discomfort. Plain film suggested possible early ileus or small-bowel obstruction. Blood cultures returned are sterile thus far. ALLERGIES: None known. MEDICATIONS: Include vancomycin, famotidine, norepinephrine, ipratropium, albuterol, vasopressin, Zosyn, hydrocortisone. PAST MEDICAL HISTORY: Diabetes mellitus type 2 complicated by vasculopathy, has known cardiac disease, cardiomyopathy with congestive heart failure, hypertension, reflux, peripheral vascular disease, morbid obesity, hypothyroidism, gout, hyperlipidemia. I believe he has some dementia as well. SOCIAL HISTORY: Former smoker. No ethanol. No illicit drug use. FAMILY HISTORY: Noncontributory. [address] [address] CONSULTATION Name: HOLDEN DE LA PAZ Room #: 237-P [facility] IN M.R.#: [id number] Admission: 03/03/20 Attend Phys: Neo Del Valle MD Discharge: Date of : 42 Report #: [id number] REVIEW OF SYSTEMS: Not reliably obtained. PHYSICAL EXAMINATION: GENERAL: Appears chronically ill, undernourished. He is obese, mugd-[id number] distress. VITAL SIGNS: Temperature 97.1, pulse ____, respirations 18, blood pressure 94/43 and it is pressor supported. HEENT: Normocephalic. Extraocular muscles intact. NECK: Supple. LUNGS: Diminished breath sounds. Few scattered coarse noted. HEART: Regular. I do not appreciate a murmur. ABDOMEN: Distended, mildly firm. It is somewhat tender actually. GENITOURINARY AND RECTAL: Deferred. LABORATORY DATA: As described above. Most recent CBC; white count of 9.2, H and H 11.4 and 37.1, platelets of 273. Electrolytes; sodium 134, potassium 4.9, chloride 101, bicarbonate 23, anion gap of 10, BUN and creatinine 52 and 4.2, glucose of 201. Estimated GFR of 17. Lactic acid recently 1.7. ASSESSMENT: Septic shock, perhaps on the basis of complicated urinary tract infection. He does have abdominal pain anteriorly, which would be somewhat unusual with plain imaging. There is question of some early ileus or partial bowel obstruction. I did review the previous hospitalization. Urinalysis was fairly unremarkable; however, the culture did grow Pseudomonas, it was multiple resistant with the exception of ____ and Avycaz. It was resistant to Zosyn. We will make adjustments to his antibiotic regimen. I think we will image his abdomen to exclude occult process. Await culture results. He remains critically ill, given his hemodynamic instability and his prognosis appears guarded. <ELECTRONICALLY SIGNED> By: Benntet Day MD 03/04/20 1255 [id number] Bennett Day MD /nt
[2020-03-05] VITALS (12 sets, daily range): BP systolic 94–129; BP diastolic 62–85
[2020-03-05 04:52] LABS: HEMATOCRIT 42.3 % (42.0-52.0); HEMOGLOBIN 13.2 gm/dL (14.0-18.0); MCH 25.3 pg (26.0-34.0); MCHC 31.2 g/dL (28.0-37.0); MCV 81.1 fL (80.0-100.0); PLATELET COUNT 279 thou/uL (150-400); RBC 5.21 mil/uL (4.50-6.00); RDW 23.6 % (10.5-14.5); WBC 21.9 thou/uL (4.0-11.0)
[2020-03-05 05:07] LABS: CREATININE 3.1 mg/dL (0.7-1.3); POTASSIUM 4.9 mmol/L (3.5-5.1)
[2020-03-05 10:01] LABS: ABSOLUTE NEUTROPHILS 19.3 thou/uL (1.4-8.2); ATYPICAL LYMPHS 1 %
[2020-03-05 10:02] LABS: ANISOCYTOSIS 2+; BURR CELLS 2+; OVALOCYTES FEW; POIKILOCYTOSIS 1+
--- NOTE | 2020-03-05 11:28 | NUR ---
PATIENT REMAINS STABLE. TITRATED OFF DOPAMINE GTT. REMAINS ON LEVOPHED AND VASOPRESSIN, MONITORING. UPDATED ON PATIENT STATUS. PATIENT VOICED NO NEEDS OR CONCERNS AT THIS TIME. STATES HE WOULD JUST LIKE TO SLEEP. SPOKE WITH FILLING TECHNICIAN ABOUT PATIENTS POOR APPETITE.
--- NOTE | 2020-03-05 11:40 | NUR ---
PATIENT PLACED BACK ON DOPAMINE GTT
--- NOTE | 2020-03-05 12:10 | NUR ---
WOUND CONSULT; ASSESSMENT OF THE HEELS AND ORR. THESE AREAS ARE STABLE. NO S/S OF INFECTION. THE PATIENT IS ALERT AND ORIENTED AT THIS TIME. THE LEFT HEEL HAS A BRUISE AND IS PAINTED WITH BETADINE. BOTH HEELS SUPPORTED WITH PRAFO BOOTS. THE ORR AREAS IS STABLE. RECOMMENDATIONS; CONTINUE CURRENT DRESSING ORDERS.
--- NOTE | 2020-03-05 16:15 | NUR ---
Cm reviewed chart and spoke with care team. pt is currently maintained on room air, he is on combination pressor support. He has liquid stool, Najera now out. Blood cultures with Staph epidermidis. Urine culture with Pseudomonas aeruginosa, C. difficile pending. RWBR following. Cm to follow as indicated with dc planning.
[2020-03-06] VITALS (66 sets, daily range): BP systolic 67–153; BP diastolic 39–120
[2020-03-06 04:02] LABS: HEMATOCRIT 41.9 % (42.0-52.0); HEMOGLOBIN 12.9 gm/dL (14.0-18.0); MCHC 30.8 g/dL (28.0-37.0); MCV 81.1 fL (80.0-100.0); RBC 5.17 mil/uL (4.50-6.00); RDW 23.3 % (10.5-14.5); WBC 22.2 thou/uL (4.0-11.0)
--- NOTE | 2020-03-06 05:35 | NUR ---
DR. SERRATO NOTIFIED OF VANCO THROUGH UNABLE TO BE OBTAINED ON 03/05 EVENING DUE TO THE VANCO ALREADY HANGING. OKAYED TO GET BEFORE NEXT VANCO DOSE.
[2020-03-06 08:00] LABS: ALBUMIN 1.6 g/dL (3.4-5.0); CALCIUM 8.1 mg/dL (8.5-10.1); CREATININE 2.7 mg/dL (0.7-1.3); POTASSIUM 4.8 mmol/L (3.5-5.1); TOTAL BILIRUBIN 0.3 mg/dL (0.2-1.0); TOTAL PROTEIN 5.1 g/dL (6.4-8.2)
--- NOTE | 2020-03-06 10:10 | NUR ---
ASSUMED CARE AT 0700, ASSESSMENT AND VITAL SIGNS COMPLETED PER ICU PROTOCOL. DR. PRECIADO ROUNDED THIS AM, NO NEW ORDERS RECEIVED. PLAN OF CARE DISCUSSED, RN WILL CONTINUE TO MONITOR.
[2020-03-06 21:32] LABS: HEMATOCRIT 42.2 % (42.0-52.0); HEMOGLOBIN 13.1 gm/dL (14.0-18.0); MCH 25.2 pg (26.0-34.0); MCV 81.1 fL (80.0-100.0); RBC 5.21 mil/uL (4.50-6.00); RDW 23.5 % (10.5-14.5)
[2020-03-06 21:35] LABS: CREATININE 2.5 mg/dL (0.7-1.3); POTASSIUM 4.6 mmol/L (3.5-5.1)
[2020-03-06 21:45] LABS: TOTAL BILIRUBIN 0.3 mg/dL (0.2-1.0); TOTAL PROTEIN 5.5 g/dL (6.4-8.2); TROPONIN-I 0.11 ng/mL (<0.06)
[2020-03-07] VITALS (47 sets, daily range): BP systolic 97–144; BP diastolic 32–80
--- NOTE | 2020-03-07 06:00 | NUR ---
REMAINS ON LEVOPHED TITRATED TO 15 MCG VASO AT 4.8 PT AWAKE AND ALERT THIS AM. WANTS FRIED CHICKEN AND COFFEE. O2 SAT 96 % PROGRESSING TOWARD GOALS
[2020-03-07 07:13] LABS: HEMATOCRIT 35.9 % (42.0-52.0); MCH 24.8 pg (26.0-34.0); MCHC 30.7 g/dL (28.0-37.0); MCV 80.9 fL (80.0-100.0); RBC 4.44 mil/uL (4.50-6.00); WBC 17.8 thou/uL (4.0-11.0)
--- NOTE | 2020-03-07 10:29 | NUR ---
ASSUMED CARE AT 0700, ASSESSMENT AND VITAL SIGNS COMPLETED PER ICU PROTOCOL. DR. CANALES ROUNDED, PLAN OF CARE DISCUSSED. RN INFORMED DR. CANALES THAT PT HAS COFFEE GROUND SPUTUM.
[2020-03-07 16:32] LABS: HEMATOCRIT 34.1 % (42.0-52.0); HEMOGLOBIN 10.5 gm/dL (14.0-18.0); MCH 24.9 pg (26.0-34.0); MCHC 30.9 g/dL (28.0-37.0); MCV 80.6 fL (80.0-100.0); PLATELET COUNT 244 thou/uL (150-400); RBC 4.23 mil/uL (4.50-6.00); RDW 22.9 % (10.5-14.5); WBC 16.7 thou/uL (4.0-11.0)
[2020-03-07 17:20] LABS: ABSOLUTE NEUTROPHILS 16.4 thou/uL (1.4-8.2); METAMYELOCYTES 2 %; NUCLEATED RBCS 3 /100WBC
[2020-03-07 17:24] LABS: ANISOCYTOSIS 2+; BURR CELLS OCCASIONAL; OVALOCYTES FEW; POIKILOCYTOSIS 1+; TEARDROPS FEW
--- NOTE | 2020-03-07 23:53 | NUR ---
PATIENT AWAKE, ALERT AND ORIENTED X2. STATES LOWER BACK PAIN DURING REPOSITIONING, TYLENOL GIVEN FOR PAIN. LARGE AMOUNT URINE OUTPUT AND MUCOUSY BM LEAKING FROM FMS NOTED. INCONTINENCE CARE COMPLETED, BED BATH GIVEN, AND FMS IRRIGATED. RESTING WELL.
[2020-03-08] VITALS (50 sets, daily range): BP systolic 82–145; BP diastolic 39–66
[2020-03-08 05:16] LABS: ALBUMIN 2.8 g/dL (3.4-5.0); CALCIUM 7.9 mg/dL (8.5-10.1); CREATININE 1.9 mg/dL (0.7-1.3); PHOSPHORUS 4.4 mg/dL (2.5-4.9); POTASSIUM 4.3 mmol/L (3.5-5.1)
--- NOTE | 2020-03-08 07:55 | EKG ---
[address] [employer] 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 : 1940 Requested By: Al Weinberg Order Number: [id number] MD: Julián Mike Measurements Intervals Union Rate: 69 P: -8 NM: 118 QRS: -77 QRSD: 153 T: 55 QT: 437 QTc: 469 Interpretive Statements Sinus rhythm 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
--- NOTE | 2020-03-08 15:38 | NUR ---
Case discussed with the care team. Pt remains in ICU on levo, iv steriods and atb. o2 support and bipap prn. Mental status better and afebrile. Pulm has updated pt's spouse Bibi. DC transportation planner to fax clinical update to the [facility] liason. DC timeframe is uncertain. Will follow.
--- NOTE | 2020-03-08 19:26 | NUR ---
PT NON COMPLIPLIANT W/NURSING THROUGHOUT DAY. REFUSED BLOOD GLUCOSE CHECKS. REFUSED TURNS THROUGHOUT ENTIRE DAY. REFUSED ORAL TEMP. STATED MULTIPLE TIMES HE, "JUST WANTS TO LEAVE." AND STAFF NEEDS TO, "JUST GO AWAY." REMAINS ON VASO, LEVO AND DOPAMINE GTTS. FOR HYPOTENSION. NOT PROGRESSING IN PLAN OF CARE. HOSPITALIST NOTIFIED REGARDING PT BEHAVIOR.
[2020-03-09] VITALS (56 sets, daily range): BP systolic 76–143; BP diastolic 21–69
[2020-03-09 04:49] LABS: HEMATOCRIT 32.3 % (42.0-52.0); HEMOGLOBIN 9.9 gm/dL (14.0-18.0); MCHC 30.8 g/dL (28.0-37.0); MCV 81.2 fL (80.0-100.0); RBC 3.98 mil/uL (4.50-6.00); RDW 22.9 % (10.5-14.5); WBC 17.8 thou/uL (4.0-11.0)
[2020-03-09 05:21] LABS: ALBUMIN 3.2 g/dL (3.4-5.0); CREATININE 1.8 mg/dL (0.7-1.3); PHOSPHORUS 3.9 mg/dL (2.5-4.9); POTASSIUM 3.8 mmol/L (3.5-5.1); TOTAL BILIRUBIN 0.3 mg/dL (0.2-1.0)
[2020-03-09 05:34] LABS: TOTAL PROTEIN 5.1 g/dL (6.4-8.2)
--- NOTE | 2020-03-09 11:27 | NUR ---
WOUND CARE F/U; THE RN TODAY NOTIFIED MYSELF THAT THE PATIENT HAS BEEN REFUSING CARE SUCH TURING. WE WERE ABLE TODAY TO TURN HIM TODAY TO ASSESS THE SACRAL WOUND BRIEFLY. WE WERE ABLE TO TAKE ONE PICTURE. THE WOUND IS WORSE TODAY DUE TO THE REFUSALS TO TURN. NO S/S OF INFECTION. RECCOMMENDATIONS; 1-CONTINUE TO ENCOURACGE TURNING. 2- CONTINUE CURRENT WOUND CARE ORDERS. RN PRESENT
--- NOTE | 2020-03-09 12:22 | NUR ---
Nutrition: TPN started due to very poor oral intake. Suggest change to customized TPN to better meet protein needs for critical care. REC TPN: 7% aa, 15% dextrose, 2.9% lipids at 75 mL/hr goal rate to meet needs til pt starts eating. As gut functioning could consider enteral feeds--unsure if pt would allow tube placement as has been refusing some cares.
--- NOTE | 2020-03-09 19:40 | NUR ---
assumed care at 0700. pt continues to refuse care. refused turns and heparin today stating, "doctors said no." physcians aware of pt noncompliance. refused all meals today due to the purred consitency. wants "real food" multiple incontents voids today. dopamine and vaso gtt titrated to 0 [id number]. 1705 updated regarding pt status. included pt refusal of care in update. pt remains of levophed. afebrile. not progressing in plan of care
[2020-03-10] VITALS (43 sets, daily range): BP systolic 54–142; BP diastolic 36–76
[2020-03-10 05:42] LABS: HEMATOCRIT 37.1 % (42.0-52.0); HEMOGLOBIN 11.5 gm/dL (14.0-18.0); MCHC 30.9 g/dL (28.0-37.0); MCV 80.9 fL (80.0-100.0); RBC 4.59 mil/uL (4.50-6.00); RDW 23.6 % (10.5-14.5); WBC 16.2 thou/uL (4.0-11.0)
[2020-03-10 05:56] LABS: ALBUMIN 3.5 g/dL (3.4-5.0); PHOSPHORUS 3.6 mg/dL (2.5-4.9); POTASSIUM 3.8 mmol/L (3.5-5.1)
--- NOTE | 2020-03-10 15:12 | NUR ---
0830 WENT IN THERE WITH CLOTH LAYER, PT REFUSE TO BE REPOSITIONED. EDUACTED PT ABOUT POSSIBLE BED SORES WHEN NOT REPOSITIONED, CONTINUED TO REFUSE. 1230 OFFERED TO REPOSITIONED PT, CONTINUED TO REFUSE, STATED "HE IS COMFORTABLE THE WAY HE IS" 1430 PT CONTINUED TO REFUSE TO BE REPOSITION, AND ALSO REFUSE FOR ME TO TAKE PICTURES OF WOUND. , CLAUS CALLED AND MADE AWARE.
--- NOTE | 2020-03-10 16:58 | NUR ---
CARE ASSUMED AT 0700, ALERT AND ORIENTED X4, FORGETFUL AT TIMES. DENIES CHEST PAIN, NAUSEA AND VOMITTING. ON 2L OF OXYGEN, NO SIGNS OF DISTRESS NOTED. PT HAS GENERALIZED EDEMA +3,+4,ARMS AND LEGS ELEVATED. ABDOMEN HYPOACTIVE, AND FIRM. PT HAS FECAL MGT SYSTEM IN PLACE, ALMOST 100CC OUT TODAY. PT REFUSES TO BE REPOSITION, OFFERED SEVERAL TIMES DURING MY SHIFT, ELEAZARILCHELLE GUEST RELATIONS RECEPTIONIST WAS IN THE ROOM. EDUCATED ON REASON FOR TURN, CONTINUED TO REFUSE, HENCE NO WOUND PICS TAKEN. CALL LIGHT IN REACH. FALL PRECAUTIONS IN PLACE. SON CALLED AND UPDATED ABOPUT CARE.
--- NOTE | 2020-03-10 22:08 | NUR ---
AT 1999 ASSESSMENT, INTRODUCED SELF TO PT AND ATTEMPTED TO CREATE A RAPPORT. PT REFUSED TO EAT DINNER, EVEN WHEN OFFERED ASSISTANCE. ASKED PT IF THIS RN COULD JUST TAKE A LOOK AT HIS BACKSIDE TO MAKE SURE FMS WAS FUCNTIONING PROPERLY AND TO APPLY BARRIER CREAM. PT BECAME VERY UPSET AND STATED "I TOLD THAT OTHER GIRL I DON'T WANT TO DO THAT." ASKED PT IF HE WAS IN PAIN, PT DENIED PAIN AT THIS TIME BUT STATED THAT "I HAVE CHRONICALLY PAIN IN MY BUTT." TOLD PT HE COULD GET SOME PAIN MEDICATION AHEAD OF TIME TO HELP WITH THE TURN, PT CONTINUES TO REFUSE AND GETTING VERY UPSET, STATING "DAE TOLD YOU ONCE, PLEASE I JUST DON'T WANT TO." EDUCATED PT ON NEED FOR TURNS AND THAT IT MIGHT HELP HIS PAIN IN HIS BACK/BUTT, BUT PT CONTINUES TO REFUSE. IS ORIENTEDX3, BUT DOES NOT SEEM TO COMPREHEND LONG-TERM CONSEQUENCES, NOR WILL HE ALLOW THIS RN TO DO BASIC HYGIENIC CARES, ARGUING THAT "IT WILL HURT ME." CLRT TURNED ON
[2020-03-11] VITALS (67 sets, daily range): BP systolic 83–121; BP diastolic 33–79
[2020-03-11 05:59] LABS: MAGNESIUM 2.2 mg/dL (1.8-2.4)
[2020-03-11 06:00] LABS: ALBUMIN 3.6 g/dL (3.4-5.0); CALCIUM 8.2 mg/dL (8.5-10.1); CREATININE 2.4 mg/dL (0.7-1.3); PHOSPHORUS 3.9 mg/dL (2.5-4.9); POTASSIUM 3.9 mmol/L (3.5-5.1)
--- NOTE | 2020-03-11 06:03 | NUR ---
PT CONTINUES TO REFUSE TURNS/BATH THROUGHOUT NIGHT, DOES NOT ALLOW ORAL CARE. REFUSED TO EAT DINNER, EVEN WHEN OFFERED ASSISTANCE, REFUSED TO DRINK ANYTHING. PT IS ABLE TO ANSWER ORIENTATION QUESTIONS, BUT THEN ASKS THE SAME QUESTION REPEATEDLY TO THIS RN AND OFTEN ARGUES WITH CARES, DESPITE HAVING BEEN TOLD WHAT MEDS ARE AND WHAT THEY ARE FOR. PT APPEARS SUSPICIOUS OF RN AND EVEN AFTER MEDS/CARES/INTERVENTIONS HAVE BEEN CAREFULLY EXPLAINED, PT DOES NOT SEEM TO COMPREHEND. DID NOT SLEEP ENTIRE SHIFT, DESPITE ENCOURAGEMENT AND ATTEMPT TO MAKE ENVIRONMENT MORE COMFORTABLE. THERMOMETER BROKEN IN ROOM, WARM BLANKETS PLACED.
--- NOTE | 2020-03-11 10:28 | NUR ---
ASSUMED CARE OF PT AT 0700. PT IS NOT WANTING TO EAT OR TO BE TURNED.
[2020-03-12] VITALS (70 sets, daily range): BP systolic 67–117; BP diastolic 32–71
[2020-03-12 04:16] LABS: ALBUMIN 3.4 g/dL (3.4-5.0); CALCIUM 8.6 mg/dL (8.5-10.1); CREATININE 2.8 mg/dL (0.7-1.3); PHOSPHORUS 4.2 mg/dL (2.6-4.7); POTASSIUM 3.7 mmol/L (3.5-5.1)
--- NOTE | 2020-03-12 07:51 | NUR ---
ASSUME CARE 1900. PT STABLE. VITALS SOFT BUT MAP STILL GREATER THAT 60. INTERMITTENT GENERALIZED PAIN WITH TYLENOL FOR RELIEF. VERY POOR TOLERANCE TO ACTIVITY. PT NEEDS MORE EDUCATION ON THE NEED BE ACTIVE AND NEEDS ENCOURAGEMENT TO DO ACTIVITY. GENERALIZED EDEMA AND VERY POOR URINE OUTPUT NOTED. PT IS VERY NON COMPLIANT AND UNCOOPERATIVE WITH CARE. NO DESIRE OR MOTIVATION TOWARDS CARE. POOR PROGRESS TO PLAN OF CARE. WILL CONTINUE TO MONITOR AND FOLLOW WITH POC
[2020-03-12 10:29] LABS: ALBUMIN 3.5 g/dL (3.4-5.0); DIRECT BILIRUBIN < 0.1 mg/dL (<0.1-0.2); HEMATOCRIT 37.8 % (42.0-52.0); HEMOGLOBIN 11.4 gm/dL (14.0-18.0); MCH 24.9 pg (26.0-34.0); MCHC 30.1 g/dL (28.0-37.0); MCV 82.7 fL (80.0-100.0); PLATELET COUNT 277 thou/uL (150-400); RBC 4.57 mil/uL (4.50-6.00); RDW 24.8 % (10.5-14.5); SGOT 13 U/L (15-37); SGPT 12 U/L (30-65); TOTAL BILIRUBIN 0.3 mg/dL (0.2-1.0); TOTAL PROTEIN 5.4 g/dL (6.4-8.2); WBC 23.2 thou/uL (4.0-11.0)
[2020-03-12 10:38] LABS: HEMATOCRIT 37.4 % (42.0-52.0); HEMOGLOBIN 11.5 gm/dL (14.0-18.0); MCH 25.1 pg (26.0-34.0); MCHC 30.7 g/dL (28.0-37.0); MCV 81.7 fL (80.0-100.0); PLATELET COUNT 276 thou/uL (150-400); RBC 4.58 mil/uL (4.50-6.00); RDW 24.1 % (10.5-14.5); WBC 26.7 thou/uL (4.0-11.0)
[2020-03-12 10:51] LABS: ALBUMIN 3.3 g/dL (3.4-5.0); DIRECT BILIRUBIN < 0.1 mg/dL (<0.1-0.2); SGOT 9 U/L (15-37); SGPT 12 U/L (16-63); TOTAL BILIRUBIN 0.3 mg/dL (0.2-1.0); TOTAL PROTEIN 5.2 g/dL (6.4-8.2)
[2020-03-12 13:29] LABS: ABSOLUTE NEUTROPHILS 23.2 thou/uL (1.4-8.2); ANISOCYTOSIS 3+; METAMYELOCYTES 1 %; SCHISTOCYTES 2+
--- NOTE | 2020-03-12 18:01 | NUR ---
ASSUMED CARE PT SHIFT CHANGE. ASSESSMETNS CHARTED.MEDS GIVEN PER MAY. PT AWAKE THROUGHOUT SHIFT, DROWSY. CONFUSED AT TIMES. PT REFUSING TURNS, SACRAL WOUND CARES, ORAL PILL MEDICATIONS, AND INCONTINENCE CHANGES. RN CONTINUEST TO ATTEMPT TO ASK.FAMILY UPDATED ON PT REFUSING CARES. PT DID NOT HAVE ANY URINE OUTPUT THIS AM. PHYSICIAN NOTIFED. ATTEMPTED TO PUT IN BONE WITH PHYSICIAN ASSISTANCE WITHOUT SUCCESS. BLADDER SCANNED, FOUND TO HAVE >720. PHYSICIAN NOTIFIED, ORDERS FOR IR CONSULT FOR POSSIBLE SUPRAPUBIC CATHETER PLACED. NURSE INFORMED BY IR THAT PROCEDURE CANNOT BE DONE UNITL SUNDAY, PHYSICIAN NOTIFIED. SPOKE WITH TX TEAM FROM [facility], UPDATED ON POC. PT CONTINUES TO REFUSE MOST CARES. CONTINUING TO ROUND ON PT, ASSESSING FOR NEEDS/CONCERNS. WILL PASS ON REPORT TO ABBIE RN.
--- NOTE | 2020-03-12 21:45 | NUR ---
This RN to bedside at 1900. Patient extremely irritable and verbally abusive yelling at RN to "get the f out" and to let him sleep. Patient refused to let this RN assess him. RN did not feel comfortable documenting an assessment. Refused to let RN touch him or properly observe. RN specifically concerned about patients urinary retention, per day shift RN. Without being able to assess patient or perform a bladder scan, discussed with patient potential outcomes, patient stated he "is fine" and to "let him ". Pt also refused to answer orientation questions, so RN is unsure if patient is confused or there neurologically. This RN had Sumanth, HOMEOPATHIC DOCTOR try to assess and talk with patient. Sumanth had more success, and he documented assessment and discussed with me, as I was uncomfortable documenting that I assessed him. Will continue to monitor and care as patient allows.
--- NOTE | 2020-03-12 21:56 | NUR ---
This RN spoke to Dr. Reynoso regarding patient and my inability to assess him properly. Dr. Reynoso said he understood and that it was okay not to chart an assessment, as I did not feel comfortable. Dr. Reynoso to discuss further with family. Will continue to monitor and care for as patient allows.
[2020-03-13] VITALS (128 sets, daily range): BP systolic 66–160; BP diastolic 32–70
[2020-03-13 06:01] LABS: ALBUMIN 3.1 g/dL (3.4-5.0); CALCIUM 8.4 mg/dL (8.5-10.1); CREATININE 3.3 mg/dL (0.7-1.3); PHOSPHORUS 4.8 mg/dL (2.5-4.9); POTASSIUM 4.1 mmol/L (3.5-5.1)
--- NOTE | 2020-03-13 07:20 | NUR ---
Patient still refusing majority of treatment. RN finally able to assess patient properly at 0400. Patients stomach hard and firm. Patient did not urinate during warehouse worker 2nd shift. Bladder scan showed 169 several times in bladder. Unsure if accurate read. Providers aware of needing urology services and unable to place catheter. Patient extremely hostile, uncooperative and verbally abusive to RN all warehouse worker 2nd shift. Pt not progressing towards goals.
[2020-03-13 09:29] LABS: APTT 48.6 Seconds (24.5-32.8); INR 1.2
--- NOTE | 2020-03-13 11:11 | NUR ---
RAPID RESPONSE CALLED ON PATIENT WHEN IN IR. PATIENT DESATED TO 70S. RESPIRATORY BAGGING PATIENT UPON ARRIVAL. DR. SIGALA PRESENT. ORDERS FOR BIPAP. TRANSFERRED BACK TO ICU ROOM. PLACED ON BIPAP. KUB DONE. SPOKE WITH GI DOCOTOR, NEW CONSULT.
--- NOTE | 2020-03-13 13:47 | NUR ---
UPDATED DR. SY ON PATIENT STATUS AND FINDINGS IN IR, UNABLE TO PLACE SUPRAPUBIC CATH IN IR. DR. SY WOULD LIKE TO BE CONTACTED WITH CT SCAN RESTULS OF ABDOMEN/PELVIS. WILL TRANSPORT PATIENT TO CT WHEN STABLE ENOUGH TO DO SO POST RAPID RESPONSE IN IR.
[2020-03-13 16:11] LABS: BE(vivo) -14.7 mmol/L (-2 to +3); HCO3 15.2 mmol/L (22.0-26.0); PO2 74.1 mmHg (80.0-100.0); sO2 88.2 % (92.0-98.0)
[2020-03-13 16:12] LABS: pH 7.076 (7.360-7.450)
[2020-03-13 18:41] LABS: BE(vivo) -9.1 mmol/L (-2 to +3); HCO3 18.2 mmol/L (22.0-26.0); PCO2 45.3 mmHg (35.0-45.0); PO2 112.9 mmHg (80.0-100.0); sO2 97.3 % (92.0-98.0)
[2020-03-13 18:42] LABS: pH 7.222 (7.360-7.450)
--- NOTE | 2020-03-13 20:07 | NUR ---
PATIENT TAKEN TO CT BY RN AND RT, WHILE LAYING FLAT IN CT SCANNER NOTED TO HAVE VOMITED COPIUS AMOUNT OF SPUTUM/MUCOUS. PT SUCTIONED IN CT. BROUGHT BACK TO ICU ROOM. NOTED TO BECOME INCREASINGLY LETHARGIC AND MINIMALLY RESPONSIVE. SPOKE WITH DR. SEWELL ABOUT CHANGE IN STATUS. ORDER FOR STAT ABG AND CHEST XRAY. NOTED CRITICAL ABG RESULTS. COMMUNICATED TO DR. SEWELL, ORDERS FOR BICARB. VERIFIED WITH RENAL DR. SY. DR. SEWELL AT BESIDE, CONSENT GIVEN TO DR. SEWELL OVER PHONE BY CLAUS FOR INTUBATION. INTUBATED. STARTED ON PROPOFOL GTT FOR SEDATION. REMAINED ON LEVOPHED GTT. BILATERAL WRIST RESTRAINTS. OG TUBE PLACED AND CONFIRMED BY XRAY. UPDATED DR. SY ON PATIENT STATUS AND CT RESULTS. ORDERS TO START LASIX GTT. PATIENT DID NOT VOID FOR ENTIRE SHIFT, RENAL AWARE. UPDATED CLAUS POST INTUBATION ON PATIENT STATUS. POST INTUBATION ABG RESULTS COMMUNICATED TO DR. SEWELL. ADDTIONAL ORDER FOR 1 AMP OF BICARB TO BE GIVEN. REPORT GIVEN TO NIGHT RN.
--- NOTE | 2020-03-13 21:59 | NUR ---
PATIENT'S TEMP WAS 93.0 AXI. CHAGO GODDARD WAS CONTACTED REGARDING THIS. ISACC APPLIED TO PATIENT.
[2020-03-14] VITALS (153 sets, daily range): BP systolic 72–130; BP diastolic 27–90
[2020-03-14 04:27] LABS: HEMATOCRIT 32.9 % (42.0-52.0); HEMOGLOBIN 10.6 gm/dL (14.0-18.0); MCH 25.9 pg (26.0-34.0); MCHC 32.1 g/dL (28.0-37.0); MCV 80.8 fL (80.0-100.0); RBC 4.08 mil/uL (4.50-6.00); RDW 23.9 % (10.5-14.5); WBC 34.1 thou/uL (4.0-11.0)
[2020-03-14 04:33] LABS: ALBUMIN 2.7 g/dL (3.4-5.0); CALCIUM 8.1 mg/dL (8.5-10.1); CREATININE 3.6 mg/dL (0.7-1.3); PHOSPHORUS 4.2 mg/dL (2.6-4.7); POTASSIUM 3.9 mmol/L (3.5-5.1)
[2020-03-14 14:14] LABS: INR 1.1; PROTIME 11.5 Seconds (9.3-11.4)
--- NOTE | 2020-03-14 19:15 | NUR ---
otis mackey, called again for update on pt status. updated on plan for thoracentesis and temp dialysis placement tomorrow. yany, rn speaking to her updating on the risks and benefits of procedures. obtained telephone consent. versed 2.5 mg/hr infusing, fentanyl off. neuro status unchanged. spontaneously opening carla eyes, all extremities flaccid.
[2020-03-15] VITALS (85 sets, daily range): BP systolic 60–136; BP diastolic 13–69
[2020-03-15 04:19] LABS: MCHC 31.1 g/dL (28.0-37.0); MCV 80.4 fL (80.0-100.0); RBC 3.98 mil/uL (4.50-6.00); RDW 24.5 % (10.5-14.5); WBC 32.7 thou/uL (4.0-11.0)
[2020-03-15 04:28] LABS: BE(vivo) -11.1 mmol/L (-2 to +3); HCO3 16.6 mmol/L (22.0-26.0); PCO2 44.4 mmHg (35.0-45.0); PO2 83.4 mmHg (80.0-100.0); sO2 93.7 % (92.0-98.0)
[2020-03-15 04:30] LABS: pH 7.191 (7.360-7.450)
[2020-03-15 04:34] LABS: ALBUMIN 2.5 g/dL (3.4-5.0); CALCIUM 8.2 mg/dL (8.5-10.1); PHOSPHORUS 4.6 mg/dL (2.5-4.9)
--- NOTE | 2020-03-15 09:46 | NUR ---
ON-GOING ASSESSMENT: CM REVIEWED CHART. PT REMAINS IN ENHANCED ISOLATION DUE TO COVID 10. PT REMAINS SEDATED ON THE VENT. CM SPOKE WITH ATTENDING WHO REQUESTED CM TO ARRANGE A FAMILY MEET WITH HIM AND PTS (SON AND DAUGHTER CAN COME ALSO) FOR NOON IN THE ER WAITING ROOM. CM [facility] T[facility] HELICOPTER, HAND MOLDER, AND BEDSIDE RN. CM WILL CONTINUE TO FOLLOW TO ASSIST ASNEEDED. PT IS FROM [facility].
--- NOTE | 2020-03-15 12:32 | NUR ---
WOUND CARE F/U; THE RN REPORTS THE WOUNDS ARE UNCHAGED. THE PATIENT IS REFUSING TURNING AND DRESSING CHANGES. WE WILL FOLLOW UP IF THE PATIENT IS AGREEABLE. RECOCCOMENDATIONS; NO CHANGES. DISCUSSED WITH RN
--- NOTE | 2020-03-15 16:48 | NUR ---
FAXED CLINICAL UPDATE TO [facility] SPOKE WITH АННА IN ADM SHE RECEIVED UPDATE.
--- NOTE | 2020-03-15 17:32 | NUR ---
ASSUMED CARE AT 0700. PATIENT IS NOW A NO CODE. FAMILY WILL DISCUSS WHEN TO PLACE THE PATIENT IN COMFORT CARE. PATIENT NOT PROGRESSING TOWARDS THE PLAN OF CARE EVIDENCED BY CONTINUED POOR ORGAN FUNCTION AND SUSTAINED HIGH DEMAND FOR OXYGEN.
[2020-03-16] VITALS (99 sets, daily range): BP systolic 78–192; BP diastolic 31–80
[2020-03-16 05:35] LABS: ALBUMIN 2.7 g/dL (3.4-5.0); CALCIUM 8.6 mg/dL (8.5-10.1); CREATININE 4.3 mg/dL (0.7-1.3); PHOSPHORUS 4.8 mg/dL (2.6-4.7)
--- NOTE | 2020-03-16 09:35 | NUR ---
ASSUMED CARE OF PT AT 0700 DR. CARPIO AT BEDSIDE AT 0915, NO NEW ORDERS GIVEN
--- NOTE | 2020-03-16 16:56 | NUR ---
FAXED CLINICAL UPDATE TO [facility] SPOKE WITH АННА IN ADM SHE RECEIVED UPDATE.
[2020-03-17] VITALS (60 sets, daily range): BP systolic 49–152; BP diastolic 19–89
[2020-03-17 05:22] LABS: ALBUMIN 2.5 g/dL (3.4-5.0); CALCIUM 8.6 mg/dL (8.5-10.1); CREATININE 4.7 mg/dL (0.7-1.3); PHOSPHORUS 5.1 mg/dL (2.6-4.7); POTASSIUM 4.5 mmol/L (3.5-5.1)
--- NOTE | 2020-03-17 07:10 | NUR ---
SPOKE WITH DR ROSS VIA PHONE REGARDING PT STATUS. ORDER TO REMOVE PT FROM ISOLATION. PT IS BEYOND 20 + DAYS OF BEING POSITIVE. OKAY FOR PT TO BE MOVED TO POD 3 IF NEEDED. OKAY FOR FAMILY TO BE PRESENT AT BEDSIDE FOR PALLIATIVE EXTUBATION. NOTIFIED PRIMARY DAY NURSE AND CHARGE NURSE OF THIS ORDER.
--- NOTE | 2020-03-17 08:00 | NUR ---
Plan is to transfer pt to the 3rd POD and ext. so his family can come see him. Pt moved without problems. Monitor still shows pacer rhythm. Bp maintained >90 with Levophed and dopamine. will cont to monitor until the family has arrived and we have dr Moreno.
--- NOTE | 2020-03-17 11:00 | NUR ---
Dr taveras here and the family is with him. all instructed to do good hand hygiene. We let them have pray together and then 2 at a time to visit. After this we will extubate pt.
--- NOTE | 2020-03-17 11:55 | NUR ---
Orders from Dr Ramos to stop everything the pressors and versed leave the Fentanyl. May extubate and 2 RN may pronounce. wishes to be at the bedside when we do this allowed. family and Vehicle Check In Clerk have had prays at the bedside. Will cont to monitor.
--- NOTE | 2020-03-17 16:48 | NUR ---
and family here to say goodbye she has decided to go home she has the number and the code. Explained to the family that this may be a long process. will cont to monitor.
[2020-03-18] VITALS: BP 63/29
[2020-03-18 00:59] VITALS: BP 65/16
[2020-03-18 01:02] VITALS: BP 71/14
--- NOTE | 2020-03-18 03:32 | NUR ---
PATIENT PEACEFULLY AT 0234. WAS CONFIRMED BY TWO RNS. FAMILIY CONTACTED AND HOME CONTACTED REGARDING THIS.
== END 2020-03-18 02:34 | DRG 871 ==
LOC: ER 18:34 → EROBS 03-03 00:49 → ICU 03-03 00:49 → EROBS 03-03 00:49 → ICU 03-03 02:01
PROVIDERS: Emergency Medicine; Hospitalist; Internal Medicine Nephrology; Internal Medicine Pulmonary Disease; Nurse Practitioner Family; Pediatrics; Specialist; ADMIT Internal Medicine; ATTEND Internal Medicine
PROC: B24BYZZ Ultrasonography of Heart with Aorta using Other Contrast (ICD-10-PCS; principal; 2020-03-03)
PROC: 5A09357 Assistance with Respiratory Ventilation, Less than 24 Consecutive Hours, Continuous Positive Airway Pressure (ICD-10-PCS; 2020-03-13)
PROC: 0BH17EZ Insertion of Endotracheal Airway into Trachea, Via Natural or Artificial Opening (ICD-10-PCS; 2020-03-13)
PROC: 5A1945Z Respiratory Ventilation, 24-96 Consecutive Hours (ICD-10-PCS; 2020-03-13)
PROC: 02HV33Z Insertion of Infusion Device into Superior Vena Cava, Percutaneous Approach (ICD-10-PCS; 2020-03-15)
PROC: B548ZZA Ultrasonography of Superior Vena Cava, Guidance (ICD-10-PCS; 2020-03-15)
DX: A41.1 Sepsis due to other specified staphylococcus (principal); R65.21 Severe sepsis with septic shock; U07.1 COVID-19; G92 Toxic encephalopathy; N17.0 Acute kidney failure with tubular necrosis; E43 Unspecified severe protein-calorie malnutrition; J12.89 Other viral pneumonia; J96.21 Acute and chronic respiratory failure with hypoxia; N39.0 Urinary tract infection, site not specified; Z68.42 Body mass index [BMI] 45.0-49.9, adult; I42.9 Cardiomyopathy, unspecified; J44.0 Chronic obstructive pulmonary disease with (acute) lower respiratory infection; K51.00 Ulcerative (chronic) pancolitis without complications; A04.72 Enterocolitis due to Clostridium difficile, not specified as recurrent; K56.7 Ileus, unspecified; I13.0 Hypertensive heart and chronic kidney disease with heart failure and stage 1 through stage 4 chronic kidney disease, or unspecified chronic kidney disease; I95.9 Hypotension, unspecified; E11.40 Type 2 diabetes mellitus with diabetic neuropathy, unspecified; K21.9 Gastro-esophageal reflux disease without esophagitis; E66.01 Morbid (severe) obesity due to excess calories; F03.90 Unspecified dementia, unspecified severity, without behavioral disturbance, psychotic disturbance, mood disturbance, and anxiety; E03.9 Hypothyroidism, unspecified; E78.5 Hyperlipidemia, unspecified; M10.9 Gout, unspecified; E11.51 Type 2 diabetes mellitus with diabetic peripheral angiopathy without gangrene; I50.9 Heart failure, unspecified; G47.33 Obstructive sleep apnea (adult) (pediatric); N40.1 Benign prostatic hyperplasia with lower urinary tract symptoms; R33.8 Other retention of urine; E11.22 Type 2 diabetes mellitus with diabetic chronic kidney disease; E11.42 Type 2 diabetes mellitus with diabetic polyneuropathy; G89.4 Chronic pain syndrome; I27.20 Pulmonary hypertension, unspecified; N18.9 Chronic kidney disease, unspecified; B96.5 Pseudomonas (aeruginosa) (mallei) (pseudomallei) as the cause of diseases classified elsewhere; D64.9 Anemia, unspecified; Z66 Do not resuscitate; Z51.5 Encounter for palliative care; Z28.21 Immunization not carried out because of patient refusal; Z87.891 Personal history of nicotine dependence; Z95.0 Presence of cardiac pacemaker; Z86.73 Personal history of transient ischemic attack (TIA), and cerebral infarction without residual deficits
CPT/HCPCS: 10078; 32100